=== PATIENT | male | born 1935 | race Caucasian/White ===

== ENCOUNTER 2017-01-28 05:15 | Day surgery (SDC) | payer OTHER ==
[2017-01-28] MEDS ORDERED: ceFAZolin 2 GM PREMIX 50 ML IV SCH (06:00)
[2017-01-28] MEDS ORDERED: MUPIROCIN 2% OINT 1 APPLIC/GM SYR NASAL SCH (06:00)
[2017-01-28] MEDS ORDERED: METF500T PO (06:04)
[2017-01-28] MEDS ORDERED: FURO40TA PO (06:04)
[2017-01-28] MEDS ORDERED: ASPI81CH37 CHEW (06:04)
[2017-01-28] MEDS ORDERED: BRIM0.2S4 EACH EYE (06:04)
[2017-01-28] MEDS ORDERED: WARF4TAB52 PO (06:04)
[2017-01-28] MEDS ORDERED: LIPI80TA PO (06:04)
[2017-01-28] MEDS ORDERED: GLIM2TAB PO (06:04)
[2017-01-28] MEDS ORDERED: CINN500C13 PO (06:04)
[2017-01-28] MEDS ORDERED: VITA200013 (06:04)
[2017-01-28] MEDS ORDERED: FERR325T8 PO (06:04)
[2017-01-28] MEDS ORDERED: LATA0.002 EACH EYE (06:04)
[2017-01-28] MEDS ORDERED: CART120C PO (06:04)
[2017-01-28] MEDS ORDERED: HYDR-3799 PO (06:04)
[2017-01-28] MEDS ORDERED: METO100T PO (06:04)
[2017-01-28] MEDS ORDERED: OMEG300C5 (06:04)
[2017-01-28] MEDS: POVIDONE IODINE 5% (ANTISEPSIS KIT) 4 APPLICATIONS EACH NARE SCH ×2 (06:36→08:53)
[2017-01-28] MEDS: CHLORHEXIDINE GLUCONATE 2 % 1 PACK (2 CLOTHS) TOPICAL SCH ×2 (06:37→08:53)
[2017-01-28] MEDS ORDERED: MIDAZOLAM HCL 5 MG/5 ML VIAL ONE (08:23)
--- NOTE | 2017-01-28 09:38 | MA ---
cc: ALEKS DURANT MD DATE: 01/28/[address] Durant PROCEDURE PERFORMED Loop recorder insertion. DESCRIPTION OF PROCEDURE After informed consent was obtained, the patient was prepped and draped in the usual sterile fashion. Next, a [employer] [place] LINQ loop recorder was inserted subcutaneously to the left chest. The patient tolerated the procedure without any apparent complications. Tachybrady pause and atrial fibrillation detection was enabled. The initial R-wave was 0.21 mV. The serial number was [id number]. Aleks Durant MD RAJAN/BT /8:50 AM /9:38 AM
== END 2017-01-28 09:40 | disposition home or self-care (01) ==
LOC: HDOC 05:15 → HDIC 05:16 → HDOC 09:40
PROVIDERS: ATTEND Nuclear Medicine Nuclear Cardiology
DX: I48.91 Unspecified atrial fibrillation (principal); R06.00 Dyspnea, unspecified; R53.83 Other fatigue; I25.10 Atherosclerotic heart disease of native coronary artery without angina pectoris; I11.0 Hypertensive heart disease with heart failure; I50.9 Heart failure, unspecified; E11.9 Type 2 diabetes mellitus without complications
CPT/HCPCS: 33282; C1764; J0690; J2250; J3010

== ENCOUNTER 2017-03-10 11:36 | Day surgery (SDC) | payer OTHER ==
[~2017-03-10] VITALS: Ht 177.8 cm; Wt 66.2 kg
[2017-03-10] VITALS (9 sets, daily range): BP systolic 129–160; BP diastolic 65–77; PULSE 67–86; RESP 17–18; TEMP 97.6–99.2; O2SAT 75–99
[~2017-03-10 11:36] MED LIST: ASPI81CH37 CHEW; BRIM0.2S4 EACH EYE; CART120C PO; CINN500C13 PO; FERR325T8 PO; FURO40TA PO; GLIM2TAB PO; HYDR-3799 PO; LATA0.002 EACH EYE; LIPI80TA PO; METF500T PO; METO100T PO; OMEG300C5; VITA200013; WARF4TAB52 PO
[2017-03-10 12:53] LABS: AUTOMATED NEUTROPHIL # 5.1 TH/MM3 (1.8-7.7); BASOPHIL # 0.1 TH/MM3 (0-0.2); BASOPHIL % 1.2 % (0.0-2.0); EOSINOPHIL # 0.3 TH/MM3 (0-0.4); EOSINOPHIL % 4.6 % (0.0-4.0); HEMATOCRIT 37.1 % (39.0-51.0); HEMO FLAGS DIFF FINAL; LYMPH % 11.5 % (9.0-44.0); LYMPHOCYTE # 0.8 TH/MM3 (1.0-4.8); MEAN CELL VOLUME 91.7 FL (80.0-100.0); MEAN CORPUSCULAR HEMOGLOBIN 30.6 PG (27.0-34.0); MEAN CORPUSCULAR HGB CONC 33.3 % (32.0-36.0); MONO % 7.7 % (0.0-8.0); PLATELET COUNT 241 TH/MM3 (150-450); RED BLOOD COUNT 4.05 MIL/MM3 (4.50-5.90); RED CELL DISTRIBUTION WIDTH 14.9 % (11.6-17.2); WHITE BLOOD COUNT 6.8 TH/MM3 (4.0-11.0)
[2017-03-10 13:06] LABS: APTT (PATIENT) 32.7 SEC (24.3-30.1); INTERNATIONAL NORMALIZED RATIO 1.7 RATIO; PROTHROMBIN TIME - PATIENT 19.2 SEC (9.8-11.6)
[2017-03-10] MEDS ORDERED: METO50TA PO (13:07)
[2017-03-10 13:12] LABS: BICARBONATE 27.6 MEQ/L (21.0-32.0); POTASSIUM 3.9 MEQ/L (3.5-5.1)
[2017-03-10] MEDS ORDERED: ceFAZolin 2 GM PREMIX 50 ML IV SCH (13:15)
[2017-03-10] MEDS ORDERED: VANCOMYCIN 1000 MG/NS 250 ML IV SCH ×2 (13:15)
[2017-03-10] MEDS ORDERED: CHLORHEXIDINE GLUCONATE 2 % 1 PACK (2 CLOTHS) TOPICAL SCH (13:15)
[2017-03-10] MEDS ORDERED: POVIDONE IODINE 5% (ANTISEPSIS KIT) 4 APPLICATIONS EACH NARE SCH (13:15)
[2017-03-10] MEDS ORDERED: MUPIROCIN 2% OINT 1 APPLIC/GM SYR NASAL SCH (13:15)
[2017-03-10] MEDS ORDERED: NS 1000 ML IV SCH (13:30)
[2017-03-10] MEDS ORDERED: VANCOMYCIN HCL 1000 MG VIAL ONE (13:59)
[2017-03-10] MEDS ORDERED: LIDOCAINE HCL 2% 50 ML VIAL ONE (13:59)
[2017-03-10] MEDS ORDERED: CHLORHEXIDINE GLUCONATE 2 % 1 PACK (2 CLOTHS) TOPICAL PRN (14:00)
[2017-03-10] MEDS ORDERED: LACTATED RINGER'S 1000 ML IV PRN (14:00)
[2017-03-10] MEDS ORDERED: METOPROLOL TARTRATE 25 MG TAB PO PRN (14:00)
[2017-03-10] MEDS ORDERED: INSULIN HUMAN REGULAR 1,000 UNITS/10 ML VIAL SQ PRN (14:00)
[2017-03-10] MEDS ORDERED: SODIUM CHLORID 0.9% 500 ML IV PRN (14:00)
[2017-03-10] MEDS ORDERED: POVIDONE IODINE 5% (ANTISEPSIS KIT) 4 APPLICATIONS EACH NARE PRN (14:00)
[2017-03-10] MEDS ORDERED: SODIUM CHLORID 0.9% 500 ML BAG IV ONE (14:36)
[2017-03-10] MEDS ORDERED: ONDANSETRON HCL 4 MG/2 ML VIAL IV PUSH ONE (14:36)
[2017-03-10] MEDS ORDERED: PROPOFOL 200 MG/20 ML AMP IV ONE (14:36)
[2017-03-10] MEDS ORDERED: traMADol HCL 50 MG TAB PO PRN (15:15)
[2017-03-10] MEDS ORDERED: ZOLPIDEM TARTRATE 5 MG TAB PO PRN (15:15)
--- NOTE | 2017-03-10 15:30 | CATHPROC ---
Ininal HIS Report Study Information Admission Scheduled Start Study Start Mar 10 2017 11:36AM 03/10/2017 Mar 10 2017 1:51PM [place] Service Cardiac Pacer/ICD Facility Department [facility] - Vocational Education Professional Physician and Clinical Staff Initial Boni Gentile Vegetable Tier Tracie Denson,RUSTY Recorder Fran DE LA CRUZ, Markus Castillo RT(R) Chip Espinal RCIS(BS) Procedures Performed Procedure Location (Site) Vessel Name Lead Insertion Venogram Subclav. Vein (Lft Subclavian Vein Equipment Time Retail Route Supervisor Description Size Mfg Part Number Used/Scraped 14:45 BIOTRONIK LEAD, SOLIA 60 PRO MRI * [id number] Used 14:50 BIOTRONIK PACEMAKER, ELUNA 8 SR-T * [id number] Used 14:44 [employer] PACER SAFE SHEATH, FR6, 13CM FR 6 [id number] Used Labs Hgb (g/dl) Hct (%) WBC (l/cumm) Platelets (thousands) 11.60-17.00 35.00-51.00 4.00-11.00 150.00-450.00 12.4 37.1 10.1 241 Glucose (mg/dl) BUN (mg/dl) Creatinine (mg/dl) BUN:Creatinine (1:x) 74.00-106.00 7.00-18.00 0.50-1.30 10.00-20.00 145 39 1.6 24.4 Na (meq/l) K (meq/l) 136.00-145.00 3.50-5.10 140 3.9 INR (PTT:PT) 0.90-1.10 1.7 Medication Medication Total Dose (Bolus/Oral) Medication Total Dosage/Unit 2% XYLOCAINE 15 mL Medications (Bolus/Oral) Medication Time Given Dosage/Unit Administered By Reason 2% XYLOCAINE 03/10/2017 2:37:25 PM 10 mL Boni Vicente 10 mL 2% XYLOCAINE given by Boni Vicente in Left shoulder via Subcutaneous. 2% XYLOCAINE 03/10/2017 3:05:12 PM 5 mL Markus Mcarthur 5 mL 2% XYLOCAINE given by Markus Mcarthur RT(R) via Subcutaneous. Initial Case Assessment Cardiovascular HR NIBP Chest Pain 58 143/68 0 Edema Present Skin color Skin None Normal Warm Dry Neurological State Oriented to time-place- Alert Moves all extremities person Respiration - General Respiration Rate SpO2 (%) O2 (lpm) (B/min) 17 100 6 Chronological Log Time Study Chronological Log 13:46:26 Patient arrived via Bed. 13:46:28 Patient Name, D.O.B, / Armband Verified By R.N. 13:46:29 Consent signed by the physician and the patient and verified by the Vocational Education Professional staff. 13:47:10 Patient has been NPO for More than 6Hrs. 13:47:34 Anesthesia at bedside. Assumes care of patient. 13:50:48 Table restraints applied according to hospital policy 13:51:31 Verbal Stimulation=2 Physical Stimulation=2 Airway=2 Respiration=2 TOTAL=8. (0=absent, 1=l imited, 2=present) 13:52:13 Skin Breakdown- none 14:05:22 Bovie ground pad applied to: 14:07:01 Patient Warmer Placed on the Table. 14:07:04 Disposable Defibrillator Pads Placed On Patient. 14:07:07 Geovanny Prominences Protected 14:07:12 A # 20 IV was noted in the Antecubital (left). Grade = 0 14:07:27 A # 20 IV was noted in the Antecubital (right). Grade = 0 14:07:49 History and physical on the chart or being dictated. Assessment: Initial Case, HR=58 BPM, DTEB=754/68 mmhg, Chest Pain=0, Edema=None, Color=Normal, Skin = Warm, Dry 14:07:51 Neurological: State=Alert, Ox3, ZAVALETA Respiration: Resp=17 B/min, DpU0=658 %, O2=6 lpm 14:09:08 Left Upper Chest Prepped Times Two. First Sponge And Instrument Count Done by Markus Mcarthur, RT(R). 14:21:47 Hypo's: hypo's, Sponges: sponges, Bovie/scratch: bovie/scratch Sutures: 6, Blades: 2, Instruments: 26, Syveck Patches: 0 hypos 3, raytec 20, laps 5, bovie tip 1, scratch 1 14:30:46 MD paged 14:31:49 MD responded Time Out. Correct patient, procedure, procedure equipment, site and side verified with physicia n present. Time 14:35:54 concurred by MD, individual staff and DATABASE TECHNICIAN. 14:36:03 Case Start 14:37:25 10 mL 2% XYLOCAINE given by Boni Vicente in Left shoulder via Subcutaneous. 14:39:24 The Subclav. Vein (Lft was manually injected with 20 cc's of contrast. contrast used. 14:40:16 Vascular access was obtained in the Subclav. Vein (Lft. 14:41:06 Wire inserted 14:41:11 Surgical Incision Made. 14:41:48 A pocket was created at the L Upper Chest. 14:42:20 A SAFE SHEATH, FR6, 13CM FR 6 was advanced into the Fem Vein (right) using the Percutaneous technique. 14:44:35 A LEAD, SOLIA 60 PRO MRI * was inserted and positioned in the RV. 14:45:30 The RV lead impedance and threshold being tested. 14:46:56 Peel away sheath removed 14:47:06 The RV lead was sutured to the fascia. 14:49:11 A PACEMAKER, ELUNA 8 SR-T * was connected and placed in the pocket. Second Sponge And Instrument Count Done by Markus Mcarthur RT(R). 14:54:49 Hypo's: hypo's, Sponges: sponges, Bovie/scratch: bovie/scratch Sutures: ~SUTURE~, Blades: 2, Instruments: 26, Syveck Patches: 0 hypos 3, raytec 20, laps 5, zion vie tip 1, scratch 1 15:02:59 The pocket was closed. 15:03:29 Implant Procedure was performed. 15:04:18 Steri-strips and a sterile dressing applied to site. 15:04:29 Case End 15:05:12 5 mL 2% XYLOCAINE given by Markus Mcarthur RT(R) via Subcutaneous. 15:08:43 Loop Recorder Removed. 15:10:47 No case complications noted. 15:10:56 Bedside Report will be given. 15:11:00 Implantable Device card placed in patient's chart. The Final Sponge And Instrument Count Done by Boni Vicente. 15:12:10 Hypo's: hypo's, Sponges: sponges, Bovie/scratch: bovie/scratch Sutures: 6, Blades: 2, Instruments: 26, Syveck Patches: 0 hypos 3, raytec 20, laps 5, bovie tip 1, scratch 1 15:29:26 Patient moved to stretcher 15:30:01 A sling was placed on the affected arm. End Study - Contrast Media Used In Study Contrast Total Opened (mL) Total Used (mL) Total Wasted (mL) Omnipaque 50 20 30 End Study - Maximum Contrast Load Max Contrast Load (mL) 207.5 End Study - Radiation Exposure Fluoro Time (minutes) 1.7 End Study - Patient Disposition Complications Transferred To Not selected Vocational Education Professional [facility]
[2017-03-10] MEDS: BRIMONIDINE TARTRATE 0.2% OPHT SOLN 5 ML BTL EACH EYE SCH (21:00)
[2017-03-10] MEDS ORDERED: ATORVASTATIN 80 MG TAB PO SCH (21:00)
[2017-03-10] MEDS ORDERED: LATANOPROST 0.005% OPHT SOLN 2.5 ML BTL EACH EYE SCH (21:00)
--- NOTE | 2017-03-10 21:06 | RADRPT ---
EXAM DATE/TIME: 03/10/2017 19:44 [facility] COMPARISON: No previous studies available for comparison. INDICATIONS : Post pacemeaker insertion MEDICAL HISTORY : Cardiovascular disease. SURGICAL HISTORY : CABG. ENCOUNTER: Initial ACUITY: 1 day PAIN SCORE: 0/10 LOCATION: chest FINDINGS: A single view of the chest demonstrates the lungs to be symmetrically aerated without evidence of mas s, infiltrate or effusion. The patient is status post sternotomy. The heart size is enlarged. There is a single lead pacing device in place from the left subclavian approach. No pleural effusion or pne umothorax is seen. Osseous structures are intact. CONCLUSION: Cardiomegaly Sherman Palma MD on March 10, 2017 at 21:03 Board Certified Radiologist. This report was verified electronically.
[2017-03-10] MEDS: hydrALAZINE HCL 25 MG TAB PO SCH (21:35)
[2017-03-10] MEDS: METOPROLOL TARTRATE 50 MG TAB PO SCH (21:36)
[2017-03-11] VITALS (10 sets, daily range): BP systolic 146–174; BP diastolic 72–89; PULSE 64–126; RESP 18; TEMP 97.4–98.3; O2SAT 97
[2017-03-11] MEDS ORDERED: VANCOMYCIN INJ 1,000 MG in SODIUM CHLOR 0.9% 250 ML INJ 250 ML IV SCH (03:00)
--- NOTE | 2017-03-11 08:13 | PD.CARD.PN ---
Subjective Subjective Remarks Denies pain, dyspnea. Objective Medications Item Value Date Time Aspirin 81 mg 03/11/17899 (Aspirin Chew) DAILY/CHEW Diltiazem HCl 180 mg 03/11/17899 (Cardizem Cd) DAILY/PO Furosemide 40 mg 03/11/17899 (Lasix) DAILY/PO Atorvastatin 80 mg 03/10/172099 Calcium HS/PO 03/10/172135 (Lipitor) Hydralazine HCl 25 mg 03/10/172099 (Apresoline) BID/PO 03/10/172134 Metoprolol 50 mg 03/10/172099 Tartrate BID/PO 03/10/172135 (Lopressor) Vital Signs / I&O Vital Signs Date Time Temp Pulse Resp B/P (MAP) Pulse Ox O2 Delivery O2 Flow Rate FiO2 03/11/17 06:00 68 03/11/17 05:00 70 03/11/17 04:00 68 03/11/17 03:43 98.3 64 18 146/72 (96) 97 03/11/17 03:00 66 03/11/17 02:00 78 03/11/17 01:00 64 03/11/17 00:00 72 03/10/17 23:00 69 03/10/17 23:00 97.6 72 18 129/65 (86) 99 03/10/17 22:00 74 03/10/17 21:00 72 03/10/17 20:00 70 03/10/17 19:54 98.2 75 18 153/77 (102) 95 03/10/17 19:00 68 03/10/17 18:00 68 03/10/17 17:00 86 03/10/17 12:57 99.2 67 17 160/70 (100) 98 I/O 03/10/17 03/10/17 03/10/17 03/11/17 03/11/17 03/11/17 07:00 15:00 23:00 07:00 15:00 23:00 Intake Total 650 ml 480 ml Output Total 500 ml Balance 650 ml -20 ml Intake Oral 650 ml 480 ml Output Urine Total 500 ml Physical Exam Incision sites clean, dry, intact, no hematoma or tenderness. Laboratory Laboratory Tests Test 03/10/17 12:24 White Blood Count 6.8 TH/MM3 Red Blood Count 4.05 MIL/MM3 Hemoglobin 12.4 GM/DL Hematocrit 37.1 % Mean Corpuscular Volume 91.7 FL Mean Corpuscular Hemoglobin 30.6 PG Mean Corpuscular Hemoglobin Concent 33.3 % Red Cell Distribution Width 14.9 % Platelet Count 241 TH/MM3 Mean Platelet Volume 9.3 FL Neutrophils (%) (Auto) 75.0 % Lymphocytes (%) (Auto) 11.5 % Monocytes (%) (Auto) 7.7 % Eosinophils (%) (Auto) 4.6 % Basophils (%) (Auto) 1.2 % Neutrophils # (Auto) 5.1 TH/MM3 Lymphocytes # (Auto) 0.8 TH/MM3 Monocytes # (Auto) 0.5 TH/MM3 Eosinophils # (Auto) 0.3 TH/MM3 Basophils # (Auto) 0.1 TH/MM3 CBC Comment DIFF FINAL Differential Comment Prothrombin Time 19.2 SEC Prothromb Time International Ratio 1.7 RATIO Activated Partial Thromboplast Time 32.7 SEC Blood Urea Nitrogen 39 MG/DL Creatinine 1.65 MG/DL Random Glucose 145 MG/DL Calcium Level 9.2 MG/DL Sodium Level 140 MEQ/L Potassium Level 3.9 MEQ/L Chloride Level 103 MEQ/L Carbon Dioxide Level 27.6 MEQ/L Anion Gap 9 MEQ/L Estimat Glomerular Filtration Rate 40 ML/MIN Assessment and Plan Problem List: (1) Status post placement of cardiac pacemaker ICD Codes: Z95.0 - Presence of cardiac pacemaker Status: Acute Plan: Stable overnight. Pacer re-interrogation shows good pacing parameters. Post op CXR OK, no PNTX. To discharge home today, same home medications plus Levaquin 500 mg qd for 5 days. Patient to resume Coumadin tonight. One week f /u for pacer and incision recheck. (2) Chronic atrial fibrillation ICD Codes: I48.2 - Chronic atrial fibrillation Status: Chronic Plan: Stable. No HR control issues. To resume Coumadin tonight. (3) CAD (coronary artery disease) ICD Codes: I25.10 - Atherosclerotic heart disease of [place] coronary artery without angina pectoris Status: Chronic Plan: Stable. No recent angina symptoms. Code Status full code Discussed Condition With patient Problem Qualifiers (1) CAD (coronary artery disease): Qualified Codes: I25.10 - Atherosclerotic heart disease of [place] coronary artery without angina pectoris Boni Vicente MD Mar 11, 2017 08:13
[2017-03-11] MEDS: METOPROLOL TARTRATE 50 MG TAB PO SCH (08:52)
[2017-03-11] MEDS: hydrALAZINE HCL 25 MG TAB PO SCH (08:52)
[2017-03-11] MEDS: BRIMONIDINE TARTRATE 0.2% OPHT SOLN 5 ML BTL EACH EYE SCH (08:53)
[2017-03-11] MEDS ORDERED: DILTIAZEM-CD 180 MG CAP ER PO SCH (09:00)
[2017-03-11] MEDS ORDERED: ASPIRIN 81 MG CHEW TAB CHEW SCH (09:00)
[2017-03-11] MEDS ORDERED: GLIMEPIRIDE 2 MG TAB PO SCH (09:00)
[2017-03-11] MEDS ORDERED: FUROSEMIDE 40 MG TAB PO SCH (09:00)
--- NOTE | 2017-03-12 01:21 | EKG ---
Date Performed: 03/10/2017 Time Performed: 12:57:26 PTAGE: 81 years EKG: Sinus rhythm with 1st degree A-V block Prolonged QT interval Possible inferior infarct - age undetermined QRS weston nges V3/V4 may be due to LVH but cannot rule out anterior infarct Abnormal ECG NO PREVIOUS TRACING DOCTOR: Ho Barraza Interpretating Date/Time 03/12/2017 01:20:01
--- NOTE | 2017-03-13 06:35 | MP ---
cc: CAMI POLANCO MD, GLEN DATE OF SURGERY: 03/10/2017 PROCEDURE: Single chamber permanent pacemaker implant placement via the left subclavian vein. INDICATIONS FOR PROCEDURE: Severe bradycardia, tachycardia/bradycardia syndrome. SURGEON Dr. Piotr Vicente OPERATIVE NOTE: The patient was brought to the operating suite in a fasting state after having signed informed consent. Left upper chest was prepped and draped as per policy and anesthetized with 1% lidocaine. After administration of contrast through a left arm peripheral IV, central venous access was obtained via the left subclavian vein without difficulty. A transverse incision was made inferior to the left clavicle and using blunt dissection a subcutaneous pocket was formed down to the pectoralis fascia. Over the guidewire a 6-Khmer sheath was placed and through this sheath a ventricular active fixation lead was introduced and its tip positioned in the right ventricular apex where excellent current of injury was demonstrated. Adequate sensitivity (3.0 mV) and stimulation threshold (0.8 volts) were demonstrated. The lead was secured into place using 2-0 silk ties down to the pectoralis fascia. The lead was connected to the pacemaker generator which is a Biotronik Eluna device. The lead and the generator were placed into the subcutaneous pocket which was closed using 3-0 Vicryl interrupted stitches in two layers to close the subcutaneous tissue and then 4-0 Monocryl running stitch to close the subcuticular tissue. Overlapping Steri-Strips and a dressing were applied. A pre-existing loop recorder was also removed using a small incision without difficulty. CONCLUSION Status post successful single chamber permanent pacemaker implantation via the left subclavian vein using a Biotronik Eluna pacemaker generator, status post loop recorder extraction. MD DANDY Hull/JESUS /3:09 PM /5:27 AM DANIELLE
== END 2017-03-11 10:30 | disposition home or self-care (01) ==
LOC: HDOC 11:36 → HDIC 11:37 → HCIS 16:00 → HDOC 03-11 10:30
PROVIDERS: ATTEND Internal Medicine Cardiovascular Disease
DX: I49.5 Sick sinus syndrome (principal); I48.91 Unspecified atrial fibrillation; I27.2 Other secondary pulmonary hypertension; I50.9 Heart failure, unspecified; I08.1 Rheumatic disorders of both mitral and tricuspid valves; E11.9 Type 2 diabetes mellitus without complications; Z79.82 Long term (current) use of aspirin; Z79.01 Long term (current) use of anticoagulants; Z87.891 Personal history of nicotine dependence
CPT/HCPCS: 00530; 33207; 71010; 80048; 85025; 85610; 85730; 93005; C1786; C1898; J2405; J3370; J7040; J7050

== ENCOUNTER 2017-06-15 12:35 | Observation (INO) | payer OTHER ==
[2017-06-15] VITALS (8 sets, daily range): BP systolic 120–159; BP diastolic 59–94; PULSE 71–92; RESP 15–20; TEMP 97.9–98; O2SAT 16–99
[~2017-06-15 12:35] MED LIST changes: -ASPI81CH37 CHEW; +ASPI81CH6 CHEW; -CINN500C13 PO; +CINN500C2 PO; +FERR325T18 PO; -FERR325T8 PO; -METO100T PO; +METO50TA PO; -OMEG300C5; +OMEG300C5 PO; -VITA200013; +VITA200013 PO
[2017-06-15 13:17] LABS: AUTOMATED NEUTROPHIL # 5.3 TH/MM3 (1.8-7.7); BASOPHIL # 0.1 TH/MM3 (0-0.2); BASOPHIL % 0.9 % (0.0-2.0); EOSINOPHIL # 0.3 TH/MM3 (0-0.4); EOSINOPHIL % 3.5 % (0.0-4.0); HEMOGLOBIN 10.8 GM/DL (13.0-17.0); LYMPH % 9.3 % (9.0-44.0); LYMPHOCYTE # 0.7 TH/MM3 (1.0-4.8); MEAN CELL VOLUME 92.8 FL (80.0-100.0); MEAN CORPUSCULAR HEMOGLOBIN 31.3 PG (27.0-34.0); MEAN CORPUSCULAR HGB CONC 33.8 % (32.0-36.0); MEAN PLATELET VOLUME 9.5 FL (7.0-11.0); MONO % 12.8 % (0.0-8.0); MONOCYTE # 0.9 TH/MM3 (0-0.9); NEUT % 73.5 % (16.0-70.0); PLATELET COUNT 261 TH/MM3 (150-450); RED BLOOD COUNT 3.45 MIL/MM3 (4.50-5.90); RED CELL DISTRIBUTION WIDTH 15.1 % (11.6-17.2); WHITE BLOOD COUNT 7.2 TH/MM3 (4.0-11.0)
[2017-06-15 13:24] LABS: INTERNATIONAL NORMALIZED RATIO 2.2 RATIO; PROTHROMBIN TIME - PATIENT 22.1 SEC (9.8-11.6)
[2017-06-15 13:30] LABS: BICARBONATE 27.6 MEQ/L (21.0-32.0); BLOOD UREA NITROGEN 24 MG/DL (7-18); CHLORIDE 104 MEQ/L (98-107); CREATININE 1.45 MG/DL (0.60-1.30); GLOMERULAR FILTRATION RATE 47 ML/MIN (>89); GLUCOSE,RANDOM 144 MG/DL (74-106); LIPASE 198 U/L (73-393); MAGNESIUM 1.6 MG/DL (1.5-2.5); SODIUM (NA) 140 MEQ/L (136-145)
--- NOTE | 2017-06-15 13:33 | PD ---
HPI Chief Complaint: Cardiac Complaint Time Seen by Provider: 13:16 Travel History International Travel<30 days: No Contact w/Intl Traveler<30days: No Traveled to known affect area: No History of Present Illness HPI 81-year-old male states he's been having chest pain and shortness of breath when he walks and lies flat for the past couple of days. He states that Dr. Phelan is his will call order clerk. He states Dr. Vicente placed a pacemaker at the end of February. He states that he recently held his Coumadin as his INR level was high at 3.0. He states now he is only taking 1 mg smaller dose when he usually takes 3 mg. He states they were afraid it would go up again as it was recently 3.6. He states he's not sure if he's had heart failure before but his records are here. He denies any other concurrent complaints or modifying factors. PFSH Past Medical History Hx Anticoagulant Therapy: Yes (COUMADIN) Heart Rhythm Problems: Yes Cancer: No Cardiovascular Problems: Yes (CAD, PACEMAKER, CABG) High Cholesterol: Yes Chest Pain: No Congestive Heart Failure: No Diabetes: Yes (TYPE II) Gastrointestinal Disorders: No Glaucoma: No Genitourinary: No Hepatitis: No Hiatal Hernia: No Hypertension: Yes Musculoskeletal: No Neurologic: No Reproductive: No Respiratory: Yes (COPD) Integumentary: No Thyroid Disease: No Past Surgical History Abdominal Surgery: No Cardiac Surgery: Yes (CABG 1999) Ear Surgery: No Endocrine Surgery: No Eye Surgery: No Genitourinary Surgery: No Gynecologic Surgery: No Oral Surgery: No Thoracic Surgery: No Social History Tobacco Use: No Substance Use: No Allergies-Medications (Allergen,Severity, Reaction): Coded Allergies: amiodarone (Unverified Allergy, Severe, 02/23/17) glyburide (Unverified Allergy, Severe, 02/23/17) Reported Meds & Prescriptions Reported Meds & Active Scripts Active Reported Metoprolol Tartrate 50 Mg Tab 50 Mg PO BID Brimonidine Opth Drops (Brimonidine Tartrate) 0.2% Soln 1 Drop EACH EYE BID Warfarin 1 Mg Tab 1 Mg PO DAILY Vitamin D (Cholecalciferol) 2,000 Unit Cap Metformin (Metformin HCl) 500 Mg Tab 500 Mg PO BIDPC With meals Lipitor (Atorvastatin Calcium) 80 Mg Tab 80 Mg PO HS Latanoprost Opth Drops (Latanoprost) 0.005% Drops 1 Drop EACH EYE HS Refrigerate until opened. Hydralazine HCl 25 Mg Tablet 25 Mg PO BID Glimepiride 2 Mg Tab 2 Mg PO DAILY Take with breakfast or first main meal Furosemide 40 Mg Tab 40 Mg PO DAILY Fish Oil ([place]-3 Fatty Acids) 300 Mg Capsule Ferrous Sulfate 325 Mg (65 Mg Iron) Tablet 325 Mg PO DAILY Eql Cinnamon (Cinnamon) 500 Mg Cap 1,000 Mg PO DAILY Cartia Xt (Diltiazem ER 24 HR) 120 Mg Caper 180 Mg PO DAILY Aspirin Low Dose (Aspirin) 81 Mg Chew 81 Mg CHEW DAILY Review of Systems Except as stated in HPI: all other systems reviewed are Neg Physical Exam Narrative GENERAL: Well-nourished, well-developed patient. SKIN: Warm and dry. HEAD: Normocephalic and atraumatic. EYES: No injection or drainage. ENT: No nasal drainage noted. NECK: Supple, trachea midline. CARDIOVASCULAR: Regular rate and rhythm RESPIRATORY: Breath sounds equal bilaterally at apices. No accessory muscle use. GASTROINTESTINAL: Abdomen soft, non-tender, nondistended. EXTREMITIES: No significant edema. NEUROLOGICAL: Awake and alert. Motor and sensory grossly within normal limits. Normal speech. Data Data Last Documented VS Vital Signs Date Time Temp Pulse Resp B/P (MAP) Pulse Ox O2 Delivery O2 Flow Rate FiO2 06/15/17 13:59 73 16 95 Room Air 06/15/17 13:59 133/65 (87) 124/59 (80) 06/15/17 13:59 2.00 06/15/17 12:37 97.9 Orders Orders Electrocardiogram (06/15/17 12:51) Basic Metabolic Panel (Bmp) (06/15/17 12:51) B-Type Natriuretic Peptide (06/15/17 12:51) Ckmb (Isoenzyme) Profile (06/15/17 12:51) Complete Blood Count With Diff (06/15/17 12:51) Magnesium (Mg) (06/15/17 12:51) Prothrombin Time / Inr (Pt) (06/15/17 12:51) Act Partial Throm Time (Ptt) (06/15/17 12:51) Troponin I (06/15/17 12:51) Lipase (06/15/17 12:51) Chest, Single Ap (06/15/17 12:51) Ecg Monitoring (06/15/17 13:26) Bilateral Bp Monitoring (06/15/17 13:26) Iv Access Insert/Monitor (06/15/17 13:26) Oximetry (06/15/17 13:26) Furosemide Inj (Lasix Inj) (06/15/17 15:30) Admit Order (Ed Use Only) (06/15/17 16:06) Consult Cardiology (06/15/17 ) Place In Observation (06/15/17 ) Vital Signs (Adult) Q4H (06/15/17 16:06) Activity Oob With Assistance (06/15/17 16:06) Perianesthesia Nurse / Telemetry .CONTINUOUS (06/15/17 16:06) Intake + Output LALA.QSHIFT (06/15/17 16:06) Diet Heart Healthy (06/15/17 Dinner) Sodium Chloride 0.9% Flush (Ns Flush) (06/15/17 16:15) Sodium Chloride 0.9% Flush (Ns Flush) (06/15/17 21:00) Acetaminophen (Tylenol) (06/15/17 16:15) Ondansetron Inj (Zofran Inj) (06/15/17 16:15) Temazepam (Restoril) (06/15/17 16:15) Basic Metabolic Panel (Bmp) (06/16/17 06:00) Complete Blood Count With Diff (06/16/17 06:00) Troponin I (06/15/17 16:06) Troponin I (06/15/17 22:06) Electrocardiogram (06/15/17 16:06) Electrocardiogram (06/15/17 22:06) Resp Oxygen Lazaro C Titrat 1-4 L (06/15/17 ) Pt Request For Service (06/15/17 16:06) Case Management Consult (06/15/17 16:06) Enoxaparin Inj (Lovenox Inj) (06/15/17 16:15) Scd Bilateral/Knee High LALA.BID (06/15/17 16:06) Yohan Bilateral/Knee High LALA.QSHIFT (06/15/17 16:06) Naloxone Inj (Narcan Inj) (06/15/17 16:15) Docusate Sodium-Senna (Cyndie-Colace) (06/15/17 21:00) Magnesium Hydroxide Liq (Milk Of Magnesi (06/15/17 16:15) Sennosides (Senokot) (06/15/17 16:15) Bisacodyl Supp (Dulcolax Supp) (06/15/17 16:15) Lactulose Liq (Lactulose Liq) (06/15/17 16:15) Echo 2d Comp With Doppler (06/15/17 ) Labs Laboratory Tests Test 06/15/17 13:02 White Blood Count 7.2 TH/MM3 Red Blood Count 3.45 MIL/MM3 Hemoglobin 10.8 GM/DL Hematocrit 32.0 % Mean Corpuscular Volume 92.8 FL Mean Corpuscular Hemoglobin 31.3 PG Mean Corpuscular Hemoglobin Concent 33.8 % Red Cell Distribution Width 15.1 % Platelet Count 261 TH/MM3 Mean Platelet Volume 9.5 FL Neutrophils (%) (Auto) 73.5 % Lymphocytes (%) (Auto) 9.3 % Monocytes (%) (Auto) 12.8 % Eosinophils (%) (Auto) 3.5 % Basophils (%) (Auto) 0.9 % Neutrophils # (Auto) 5.3 TH/MM3 Lymphocytes # (Auto) 0.7 TH/MM3 Monocytes # (Auto) 0.9 TH/MM3 Eosinophils # (Auto) 0.3 TH/MM3 Basophils # (Auto) 0.1 TH/MM3 CBC Comment DIFF FINAL Differential Comment Prothrombin Time 22.1 SEC Prothromb Time International Ratio 2.2 RATIO Activated Partial Thromboplast Time 34.3 SEC Blood Urea Nitrogen 24 MG/DL Creatinine 1.45 MG/DL Random Glucose 144 MG/DL Calcium Level 9.0 MG/DL Magnesium Level 1.6 MG/DL Sodium Level 140 MEQ/L Potassium Level 3.8 MEQ/L Chloride Level 104 MEQ/L Carbon Dioxide Level 27.6 MEQ/L Anion Gap 8 MEQ/L Estimat Glomerular Filtration Rate 47 ML/MIN Total Creatine Kinase 53 U/L Troponin I LESS THAN 0.02 NG/ML B-Type Natriuretic Peptide 702 PG/ML Lipase 198 U/L MDM Medical Decision Making Medical Screen Exam Complete: Yes Emergency Medical Condition: Yes Medical Record Reviewed: Yes (patient with history of tachybradycardia syndrome with recent pacemaker placement) Interpretation(s) CBC & BMP Diagram 06/15/17 13:02 Calcium Level 9.0, Magnesium Level 1.6 Last 24 hours Impressions Chest X-Ray 06/15/17 1251 Signed Impressions: Service Date/Time: Thursday, June 15, 2017 13:38 - CONCLUSION: 1. Small bilateral effusions and bibasilar airspace disease 2. Mild interstitial congestion. 3. Status post CABG. Jose Morrell MD Differential Diagnosis chf, mi, anemia, renal failure.... Narrative Course will check labs, cxr and reeval patient with therapeutic INR will hold aspirin, Lasix given for CHF, patient updated and agrees to admission Physician Communication Physician Communication dr phelan states to place in the hospital and he will follow dr read agrees to admit Diagnosis Primary Impression: CHF (congestive heart failure) Qualified Codes: I50.9 - Heart failure, unspecified Additional Impression: Chest pain Qualified Codes: R07.9 - Chest pain, unspecified Admitting Information Admitting Physician Requests: Observation Shi Busch MD Jun 15, 2017 13:33
[2017-06-15 13:34] LABS: TROPONIN I LESS THAN 0.02 NG/ML (0.02-0.05)
--- NOTE | 2017-06-15 15:15 | RADRPT ---
EXAM DATE/TIME: 06/15/2017 13:38 [facility] COMPARISON: CHEST SINGLE AP, March 10, 2017, 19:44. INDICATIONS : Chest pain. Patient complains of shortness of breath and chest pressure. MEDICAL HISTORY : Cardiovascular disease. SURGICAL HISTORY : Pacemaker. CABG. Pacer 2 mo. ago. ENCOUNTER: Initial ACUITY: 4 - 6 days PAIN SCORE: 0/10 LOCATION: Bilateral chest FINDINGS: Small bilateral effusions with bibasilar airspace disease have developed. There is mild interstitial vascular prominence. Post surgical changes from prior CABG are noted. Single lead pacemaker is noted in place. CONCLUSION: 1. Small bilateral effusions and bibasilar airspace disease 2. Mild interstitial congestion. 3. Status post CABG. Jose Morrell MD on June 15, 2017 at 15:12 Board Certified Radiologist. This report was verified electronically.
[2017-06-15] MEDS ORDERED: FUROSEMIDE 40 MG/4 ML VIAL IV PUSH ONE (15:30)
[2017-06-15] MEDS ORDERED: LACTULOSE SYRUP 20 GM/30 ML CUP PO PRN (16:15)
[2017-06-15] MEDS ORDERED: NALOXONE HCL 0.4 MG/ML AMP IV PUSH PRN (16:15)
[2017-06-15] MEDS ORDERED: BISACODYL 10 MG SUPP RECTAL PRN (16:15)
[2017-06-15] MEDS ORDERED: SODIUM CHLORIDE 0.9% FLUSH 10 ML FLUSH IV FLUSH PRN (16:15)
[2017-06-15] MEDS ORDERED: ACETAMINOPHEN 325 MG TAB PO PRN (16:15)
[2017-06-15] MEDS ORDERED: MORPHINE SULFATE 2 MG/ML INJ IM PRN (16:15)
[2017-06-15] MEDS ORDERED: MAGNESIUM HYDROXIDE SUSP 30 ML CUP PO PRN (16:15)
[2017-06-15] MEDS ORDERED: SENNOSIDES 8.6 MG TAB PO PRN (16:15)
[2017-06-15] MEDS ORDERED: ONDANSETRON HCL 4 MG/2 ML VIAL IVP PRN (16:15)
--- NOTE | 2017-06-15 17:32 | HHI.HP ---
HPI Service [facility] Hospitalists Primary Care Physician Waleska Lambert D.O. Admission Diagnosis chest pain, chf Diagnoses: Chief Complaint: Dyspnea with minimal exertion and lying flat Chest pain Travel History International Travel<30 Days: No Contact w/Intl Traveler <30 Da: No Traveled to Known Affected Are: No History of Present Illness Written by Jamee De Paz, acting as scribe for Dr. Mauro on 06/15/17 at 17: 30. 81yo male with PMHX of CAD with previous NJ and CABG, DM, HTN, COPD, HLD, CKD stage 3, MARBIN, atrial fibrillation on Coumadin and hx of tachybrady syndrome s/p pacemaker placement February of this year who presents to [facility] ED with complaints of shortness of breath with minimal exertion and bilateral lower extremity swelling for the past 4 days. He reports associated chest pain with the shortness of breath. He describes the chest pain as a nonradicular pushing sensation. He denies any associated palpitations, nausea, vomiting, abdominal pain or diarrhea. He does endorse lightheadedness with exertion. He states the chest pain is improved with lying flat. He reports increased fatigue. He denies any cough. Patient reports his blood sugars have "leonardo rocketed" over the past 4-5 days. In the ED, CXR shows mild interstitial edema and bilateral small pleural effusions and BNP elevated at 702. He reports improvement after receiving IV Lasix in the ED. He is chest pain free at this time. Review of Systems Except as stated in HPI: all other systems reviewed are Neg Past Family Social History Past Medical History HTN CAD s/p NJ and CABG CHF Type II DM CKD, stage 3 COPD HLD Atrial fibrillation on Coumadin Iron deficiency anemia Hx of tachybrady syndrome s/p pacemaker implantation Past Surgical History CABG Pacemaker implantation Appendectomy Tonsillectomy Reported Medications Metoprolol Tartrate 50 Mg Tab 50 Mg PO BID Brimonidine Opth Drops (Brimonidine Tartrate) 0.2% Soln 1 Drop EACH EYE BID Warfarin 1 Mg Tab 1 Mg PO DAILY Vitamin D (Cholecalciferol) 2,000 Unit Cap Metformin (Metformin HCl) 500 Mg Tab 500 Mg PO BIDPC With meals Lipitor (Atorvastatin Calcium) 80 Mg Tab 80 Mg PO HS Latanoprost Opth Drops (Latanoprost) 0.005% Drops 1 Drop EACH EYE HS Refrigerate until opened. Hydralazine HCl 25 Mg Tablet 25 Mg PO BID Glimepiride 2 Mg Tab 2 Mg PO DAILY Take with breakfast or first main meal Furosemide 40 Mg Tab 40 Mg PO DAILY Fish Oil ([place]-3 Fatty Acids) 300 Mg Capsule Ferrous Sulfate 325 Mg (65 Mg Iron) Tablet 325 Mg PO DAILY Eql Cinnamon (Cinnamon) 500 Mg Cap 1,000 Mg PO DAILY Cartia Xt (Diltiazem ER 24 HR) 120 Mg Caper 180 Mg PO DAILY Aspirin Low Dose (Aspirin) 81 Mg Chew 81 Mg CHEW DAILY Allergies: Coded Allergies: amiodarone (Unverified Allergy, Severe, 02/23/17) glyburide (Unverified Allergy, Severe, 02/23/17) Active Ordered Medications Current Medications Medications (Trade) Dose Ordered Sig/Kulwant Route Start Time Stop Time Status Last Admin (NS Flush) 2 ml UNSCH PRN IV FLUSH 06/15/17 16:15 (NS Flush) 2 ml BID IV FLUSH 06/15/17 21:00 (Tylenol) 650 mg Q4H PRN PO 06/15/17 16:15 (Zofran Inj) 4 mg Q6H PRN IVP 06/15/17 16:15 (Restoril) 15 mg HS PRN PO 06/15/17 16:15 (Lovenox Inj) 40 mg Q24H SQ 06/15/17 18:00 (Narcan Inj) 0.4 mg UNSCH PRN IV PUSH 06/15/17 16:15 (Cyndie-Colace) 1 tab BID PO 06/15/17 21:00 (Milk Of Magnesia Liq) 30 ml Q12H PRN PO 06/15/17 16:15 (Senokot) 17.2 mg Q12H PRN PO 06/15/17 16:15 (Dulcolax Supp) 10 mg DAILY PRN RECTAL 06/15/17 16:15 (Lactulose Liq) 30 ml DAILY PRN PO 06/15/17 16:15 (Morphine Inj) 2 mg Q4H PRN IM 06/15/17 16:15 Family History Father, CAD SHERRY Social History Patient has a remote hx of tobacco use but quit in 1966. Denies any EtOH consumption or illicit drug use. Patient lives with his . Physical Exam Vital Signs Vital Signs Date Time Temp Pulse Resp B/P (MAP) Pulse Ox O2 Delivery O2 Flow Rate FiO2 06/15/17 16:33 71 16 159/94 (115) 99 Nasal Cannula 2.00 06/15/17 13:59 73 16 95 Room Air 06/15/17 13:59 78 133/65 (87) 124/59 (80) 06/15/17 13:59 74 16 133/65 (87) 98 Room Air 2.00 124/59 (80) 06/15/17 12:37 97.9 91 15 122/78 (93) 95 Physical Exam GENERAL: This is a well-nourished, well-developed male patient who appears younger than stated age, in no apparent distress. Awake and alert. at the bedside. SKIN: No rashes, ecchymoses or lesions. Cool and dry. HEAD: Atraumatic. Normocephalic. No temporal or scalp tenderness. EYES: Pupils equal round and reactive. Extraocular motions intact. No scleral icterus. No injection or drainage. ENT: Nose without bleeding or purulent drainage. Throat without erythema, tonsillar hypertrophy or exudate. Uvula midline. Airway patent. NECK: Trachea midline. No JVD or lymphadenopathy. Supple, nontender, no meningeal signs. CARDIOVASCULAR: Regular rate and rhythm without murmurs, gallops, or rubs. RESPIRATORY: Diminished at the bases bilaterally. Clear to auscultation. Breath sounds equal bilaterally. No wheezes, rales, or rhonchi. GASTROINTESTINAL: Abdomen soft, non-tender, nondistended. No hepato-splenomegaly , or palpable masses. No guarding. MUSCULOSKELETAL: Extremities without clubbing or cyanosis. 3+ bilateral pitting edema. No joint tenderness, effusion, or edema noted. No calf tenderness. NEUROLOGICAL: Awake and alert. Able to move all extremities spontaneously. Motor and sensory function grossly intact. Normal speech. Laboratory Laboratory Tests Test 06/15/17 13:02 06/15/17 14:15 White Blood Count 7.2 Red Blood Count 3.45 Hemoglobin 10.8 Hematocrit 32.0 Mean Corpuscular Volume 92.8 Mean Corpuscular Hemoglobin 31.3 Mean Corpuscular Hemoglobin Concent 33.8 Red Cell Distribution Width 15.1 Platelet Count 261 Mean Platelet Volume 9.5 Neutrophils (%) (Auto) 73.5 Lymphocytes (%) (Auto) 9.3 Monocytes (%) (Auto) 12.8 Eosinophils (%) (Auto) 3.5 Basophils (%) (Auto) 0.9 Neutrophils # (Auto) 5.3 Lymphocytes # (Auto) 0.7 Monocytes # (Auto) 0.9 Eosinophils # (Auto) 0.3 Basophils # (Auto) 0.1 CBC Comment DIFF FINAL Differential Comment Prothrombin Time 22.1 Prothromb Time International Ratio 2.2 Activated Partial Thromboplast Time 34.3 Blood Urea Nitrogen 24 Creatinine 1.45 Random Glucose 144 Calcium Level 9.0 Magnesium Level 1.6 Sodium Level 140 Potassium Level 3.8 Chloride Level 104 Carbon Dioxide Level 27.6 Anion Gap 8 Estimat Glomerular Filtration Rate 47 Total Creatine Kinase 53 Troponin I LESS THAN 0.02 0.02 B-Type Natriuretic Peptide 702 Lipase 198 Result Diagram: 06/15/17 1302 06/15/17 1302 Imaging Last Impressions Chest X-Ray 06/15/17 1251 Signed Impressions: Service Date/Time: Thursday, June 15, 2017 13:38 - CONCLUSION: 1. Small bilateral effusions and bibasilar airspace disease 2. Mild interstitial congestion. 3. Status post CABG. MD Raissa Osuna VTE Risk Assessment Capmila VTE Risk Assessment: Mod/High Risk (score >= 2) VTE Pharm Contraindication: Coagulopathy,INR elevated Caprini Risk Assessment Model Point Value = 1 Point Value = 2 Point Value = 3 Point Value = 5 Age 41-60 Minor surgery BMI > 25 kg/m2 Swollen legs Varicose veins or History of unexplained or recurrent spontaneous Oral contraceptives or hormone replacement Sepsis (< 1 month) Serious lung disease, including pneumonia (< 1 month) Abnormal pulmonary function Acute myocardial infarction Congestive heart failure (< 1 month) History of inflammatory bowel disease Medical patient at bed rest Age 61-74 Arthroscopic surgery Major open surgery (> 45 min) Laparoscopic surgery (> 45 min) Malignancy Confined to bed (> 72 hours) Immobilizing plaster cast Central venous access Age >= 75 History of VTE Family history of VTE Factor V Leiden Prothrombin [id number] Lupus anticoagulant Anticardiolipin antibodies Elevated serum homocysteine Heparin-induced thrombocytopenia Other congenital or acquired thrombophilia Stroke (< 1 month) Elective arthroplasty Hip, pelvis, or leg fracture Acute spinal cord injury (< 1 month) Prophylaxis Regimen Total Risk Factor Score Risk Level Prophylaxis Regimen 0-1 Low Early ambulation 2 Moderate Order ONE of the following: *Sequential Compression Device (SCD) *Heparin 5000 units SQ BID 3-4 Higher Order ONE of the following medications: *Heparin 5000 units SQ TID *Enoxaparin/Lovenox 40 mg SQ daily (WT < 150 kg, CrCl > 30 mL/min) *Enoxaparin/Lovenox 30 mg SQ daily (WT < 150 kg, CrCl > 10-29 mL/min) *Enoxaparin/Lovenox 30 mg SQ BID (WT < 150 kg, CrCl > 30 mL/min) AND/OR *Sequential Compression Device (SCD) 5 or more Highest Order ONE of the following medications: *Heparin 5000 units SQ TID (Preferred with Epidurals) *Enoxaparin/Lovenox 40 mg SQ daily (WT < 150 kg, CrCl > 30 mL/min) *Enoxaparin/Lovenox 30 mg SQ daily (WT < 150 kg, CrCl > 10-29 mL/min) *Enoxaparin/Lovenox 30 mg SQ BID (WT < 150 kg, CrCl > 30 mL/min) AND *Sequential Compression Device (SCD) Assessment and Plan Assessment and Plan 81yo male with PMHX of CAD with previous NJ and CABG, DM, HTN, COPD, HLD, CKD stage 3, MARBIN, atrial fibrillation on Coumadin and hx of tachybrady syndrome s/p pacemaker placement February of this year who presents to [facility] ED with complaints of shortness of breath with minimal exertion and bilateral lower extremity swelling for the past 4 days. CHF, decompensated - CXR personally reviewed showing bilateral effusions, mild interstitial congestion - BNP 702 - Diuresis with IV Lasix. Monitor electrolytes. - Strict I&Os - obtain echocardiogram - Fluid and sodium restricted diet - continue supplemental oxygen to maintain O2 sats > 92% - PT eval/tx CAD s/p previous NJ and CABG Chest pain - c/o chest pain with dyspnea and exertion, suspect demand ischemia - patient is chest pain free after receiving IV Lasix in the ED - ED physician discussed with patients adult manager Dr. Ross who will see the patient in consultation - initial troponins negative x 2. Continue to trend Alda - ASA daily - IV Morphine prn chest pain - continuous cardiac monitoring Atrial fibrillation on Coumadin - rate controlled - INR therapeutic at 2.2 - Continue home dose of Coumadin. Monitor INR. Pharmacy to dose. - continue on home dose of Metoprolol and Diltiazem once med rec updated Hypertension - resume home dose of antihypertensives once medication reconciliation updated CKD stage III - creatinine 1.45/GFR 47, previous creatinine 1.65/GFR 40 03/10/17 - avoid nephrotoxic agents - monitor kidney function while on IV Lasix DM, type II - hold home Metformin and Glimepiride - accucheck - ISS - heart healthy diabetic diet MARBIN - resume home dose of oral iron supplementation - monitor CBC as indicated Dyslipidemia - resume home dose of Lipitor DVT prophylaxis - patient is on Coumadin This note was transcribed by ALEX Arambula . I, Dr. Elsy Mauro personally performed the history, physical exam, and medical decision making; and confirmed the accuracy of the information in the transcribed note. Authenticated by Dr. Elsy Mauro on 06/15/17 at 17:30. Discussed Condition With ED physician, patient and Jamee De Paz Jun 15, 2017 17:32 Elsy Mauro MD Jun 15, 2017 18:13
[2017-06-15] MEDS ORDERED: ENOXAPARIN SODIUM 40 MG/0.4 ML SYRINGE SQ SCH (18:00)
[2017-06-15] MEDS ORDERED: DEXTROSE 50% IN WATER 50 ML VIAL(D50) IV PUSH PRN (18:15)
[2017-06-15] MEDS ORDERED: GLUCAGON 1 MG/ML VIAL OTHER PRN (18:15)
--- NOTE | 2017-06-15 20:18 | MB ---
cc: RADHA COVARRUBIAS M.D. DATE OF CONSULTATION 06/15/2017 REASON FOR CONSULTATION Evaluation of CHF and angina. HISTORY OF THE PRESENT ILLNESS Jaguar Larson is an 81-year-old man who is a patient of my colleague Dr. Durant. The patient has known coronary artery disease. He says he was at his doctor's office and was diagnosed as having heart attack at underwent bypass surgery in year 1999 at [facility]. This was a two-vessel bypass. Note, there is no catheter bypass records available on him. He was in his usual state of health until 4 days ago when he started noticing increasing shortness of breath, lower extremity edema and the shortness of breath was worse with exertion, worse lying down and with exertion he would also get anginal type pain described as pressure in the center of his chest. He says he restricts his salt intake. He is on 40 mg of Lasix a day. He has no history of any LV dysfunction but does have a history of moderate mitral regurgitation by echocardiography in June 2016. He has had no syncope or presyncope. He also reports his blood sugars have skyrocketed in the last four days. He had a chest x-ray showing mild edema and bilateral pleural effusions. Ever since he has been in the hospital he has been receiving IV Lasix with improvement in his symptoms. PAST MEDICAL HISTORY Includes: 1. Sick sinus syndrome with intermittent a fib, status post a VVI Biotronik pacemaker. 2. Type 2 diabetes. 3. Hyperlipidemia. 4. Hypertension. 5. Moderate mitral regurgitation. 6. Previous MD. PAST SURGICAL HISTORY Includes: 1. Bypass surgery. 2. Skin cancer removals. 3. He has also had appendectomy. 4. Tonsillectomy. MEDICATIONS Are charted. ALLERGIES INCLUDE AMIODARONE, GLYBURIDE. 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 He quit smoking 1966. Denies alcohol. He is . FAMILY HISTORY Positive for heart disease in his father. PHYSICAL EXAMINATION GENERAL: Physical exam reveals a well-developed, well-nourished male in no acute distress. VITAL SIGNS: Charted. HEENT: Exam unremarkable. NECK: Shows mildly increased central venous pressure. CHEST: Shows diminished breath sounds at the bases consistent with pleural effusions. CARDIOVASCULAR: Exam shows a slight LV heave. S1-S2, regular rate and rhythm. There is least a 2/6 mitral regurgitation murmur. There is a pacemaker in the left infraclavicular region. ABDOMEN: Soft, nontender. EXTREMITIES: Reveal at least 2+ lower extremity edema. LABORATORY DATA His laboratories are charted. Troponins normal x2. Creatinine is 1.45. BNP elevated at 702. INR is 2.2. Hematocrit is 32.0. IMAGING Chest x-ray shows small bilateral effusions and mild interstitial edema. EKG shows 100% ventricular pacing, an underlying atrial rhythm cannot be discerned. IMPRESSION Decompensated congestive heart failure with a four day history. He has also had angina with his dyspnea. There is no evidence for myocardial infarction. He is 17 years post bypass. He has known moderate mitral regurgitation and has a mitral regurgitation murmur. He has responded to IV diuretics. PLAN 1. He needs a 2-D echo Doppler to assess LV function and valvular function. 2. Continue diuretics. I am increasing his potassium to ____ times a day instead of twice a day since he is on significant IV Lasix doses. Follows his electrolytes, magnesium level. After his echo is seen, we will decide on further medication adjustments. Continue his beta-nicolas. For his LV dysfunction he may be a candidate to have his pacemaker upgraded to a biventricular device. Further therapy to be determined. MD SAHIL Amado/KK /6:29 PM /7:57 PM
[2017-06-15] MEDS: SODIUM CHLORIDE 0.9% FLUSH 10 ML FLUSH IV FLUSH SCH (21:00)
[2017-06-15] MEDS: DOCUSATE SODIUM 50 MG/SENNA 8.6 MG TAB PO SCH (21:00)
[2017-06-15] MEDS: INSULIN ASPART SUPPLEMENTAL SCALE SQ SCH (21:00)
[2017-06-15] MEDS ORDERED: POTASSIUM CHLORIDE 20 MEQ CONTROLLED RELEASE TAB PO SCH (21:00)
[2017-06-15] MEDS: LATANOPROST 0.005% OPHT SOLN 2.5 ML BTL EACH EYE SCH (21:00)
[2017-06-15] MEDS: ATORVASTATIN 40 MG TAB PO SCH (21:42)
[2017-06-15] MEDS: METOPROLOL TARTRATE 50 MG TAB PO SCH (21:42)
[2017-06-15] MEDS: POTASSIUM CHLORIDE 20 MEQ CONTROLLED RELEASE TAB PO SCH (21:42)
[2017-06-15 22:17] LABS: AST (GOT) 20 U/L (15-37); BICARBONATE 28.8 MEQ/L (21.0-32.0); BLOOD UREA NITROGEN 22 MG/DL (7-18); CALCIUM 8.5 MG/DL (8.5-10.1); CHLORIDE 104 MEQ/L (98-107); CREATININE 1.28 MG/DL (0.60-1.30); GLOMERULAR FILTRATION RATE 54 ML/MIN (>89); GLUCOSE,RANDOM 109 MG/DL (74-106); MAGNESIUM 1.5 MG/DL (1.5-2.5); SODIUM (NA) 140 MEQ/L (136-145)
[2017-06-15 22:18] LABS: ALT (GPT) 30 U/L (12-78)
[2017-06-15 22:22] LABS: ALKALINE PHOSPHATASE 112 U/L (45-117); TOTAL BILIRUBIN ADULT 1.5 MG/DL (0.2-1.0); TOTAL PROTEIN 6.4 GM/DL (6.4-8.2); TROPONIN I 0.02 NG/ML (0.02-0.05)
[2017-06-16] VITALS (27 sets, daily range): BP systolic 123–156; BP diastolic 59–82; PULSE 61–137; RESP 16–20; TEMP 97.2–98.3; O2SAT 90–97
[2017-06-16 05:48] LABS: AUTOMATED NEUTROPHIL # 4.4 TH/MM3 (1.8-7.7); BASOPHIL # 0.1 TH/MM3 (0-0.2); BASOPHIL % 1.2 % (0.0-2.0); EOSINOPHIL # 0.4 TH/MM3 (0-0.4); EOSINOPHIL % 6.3 % (0.0-4.0); HEMATOCRIT 29.6 % (39.0-51.0); HEMOGLOBIN 10.2 GM/DL (13.0-17.0); LYMPH % 11.1 % (9.0-44.0); LYMPHOCYTE # 0.7 TH/MM3 (1.0-4.8); MEAN CELL VOLUME 91.8 FL (80.0-100.0); MEAN CORPUSCULAR HEMOGLOBIN 31.6 PG (27.0-34.0); MEAN CORPUSCULAR HGB CONC 34.4 % (32.0-36.0); MEAN PLATELET VOLUME 9.3 FL (7.0-11.0); MONO % 13.2 % (0.0-8.0); MONOCYTE # 0.9 TH/MM3 (0-0.9); NEUT % 68.2 % (16.0-70.0); PLATELET COUNT 224 TH/MM3 (150-450); RED BLOOD COUNT 3.23 MIL/MM3 (4.50-5.90); RED CELL DISTRIBUTION WIDTH 14.9 % (11.6-17.2); WHITE BLOOD COUNT 6.4 TH/MM3 (4.0-11.0)
[2017-06-16 05:57] LABS: PROTHROMBIN TIME - PATIENT 20.7 SEC (9.8-11.6)
[2017-06-16] MEDS: INSULIN ASPART SUPPLEMENTAL SCALE SQ SCH ×4 (08:00→21:18)
[2017-06-16] MEDS: METOPROLOL TARTRATE 50 MG TAB PO SCH ×2 (08:44→21:17)
[2017-06-16] MEDS: FUROSEMIDE 40 MG/4 ML VIAL IV PUSH SCH ×2 (08:44→16:55)
[2017-06-16] MEDS: POTASSIUM CHLORIDE 20 MEQ CONTROLLED RELEASE TAB PO SCH ×3 (08:44→16:55)
[2017-06-16] MEDS: SODIUM CHLORIDE 0.9% FLUSH 10 ML FLUSH IV FLUSH SCH ×2 (08:45→21:18)
[2017-06-16] MEDS: DOCUSATE SODIUM 50 MG/SENNA 8.6 MG TAB PO SCH ×2 (08:45→21:17)
--- NOTE | 2017-06-16 09:40 | HHI.PR ---
Subjective Remarks The patient was seen vp clinical research. Had breakfast. Says she feels improved. LE edema improved, less sob. Able to ambulate without any problems. Denies chest pain or palpitations. No fever or chills.No cough, no n/v/d/c. Objective Vitals Vital Signs Date Time Temp Pulse Resp B/P (MAP) Pulse Ox O2 Delivery O2 Flow Rate FiO2 06/16/17 09:00 85 06/16/17 08:50 94 21 06/16/17 08:00 90 06/16/17 07:15 98.3 86 18 133/70 (91) 94 06/16/17 07:15 94 06/16/17 06:11 75 06/16/17 05:09 70 06/16/17 04:25 61 06/16/17 03:33 74 06/16/17 03:15 98.0 68 17 123/59 (80) 94 06/16/17 02:21 68 06/16/17 01:10 68 06/16/17 00:13 75 06/15/17 23:26 97.9 74 18 120/60 (80) 93 06/15/17 23:26 77 06/15/17 22:00 76 06/15/17 21:20 98.0 92 16 145/67 (93) 93 06/15/17 21:20 75 06/15/17 19:14 72 20 133/66 (88) 96 1.00 06/15/17 17:56 70 16 148/90 (109) 99 Nasal Cannula 2.00 06/15/17 16:33 71 16 159/94 (115) 99 Nasal Cannula 2.00 06/15/17 13:59 73 16 95 Room Air 06/15/17 13:59 78 133/65 (87) 124/59 (80) 06/15/17 13:59 74 16 133/65 (87) 98 Room Air 2.00 124/59 (80) 06/15/17 12:37 97.9 91 15 122/78 (93) 95 I/O 06/15/17 06/15/17 06/15/17 06/16/17 06/16/17 06/16/17 07:00 15:00 23:00 07:00 15:00 23:00 Intake Total 240 ml Output Total 525 ml Balance -285 ml Intake Oral 240 ml Output Urine Total 525 ml Result Diagram: 06/16/17 0522 06/15/17 2146 Imaging Last Impressions Chest X-Ray 06/15/17 1251 Signed Impressions: Service Date/Time: Thursday, June 15, 2017 13:38 - CONCLUSION: 1. Small bilateral effusions and bibasilar airspace disease 2. Mild interstitial congestion. 3. Status post CABG. Jose Morrell MD Objective Remarks GENERAL: This is a well-nourished, well-developed male patient who appears younger than stated age, in no apparent distress. Awake and alert. at the bedside. CARDIOVASCULAR: Regular rate and rhythm without murmurs, gallops, or rubs. RESPIRATORY: Diminished at the bases bilaterally. Clear to auscultation. Breath sounds equal bilaterally. No wheezes, rales, or rhonchi. GASTROINTESTINAL: Abdomen soft, non-tender, nondistended. No hepato-splenomegaly , or palpable masses. No guarding. MUSCULOSKELETAL: Extremities without clubbing or cyanosis. 1+ bilateral pitting edema improved. No joint tenderness, effusion, or edema noted. No calf tenderness. NEUROLOGICAL: Awake and alert. Able to move all extremities spontaneously. Motor and sensory function grossly intact. Normal speech. A/P Assessment and Plan 81yo male with PMHX of CAD with previous [place] and CABG, DM, HTN, COPD, HLD, CKD stage 3, MARBIN, atrial fibrillation on Coumadin and hx of tachybrady syndrome s/p pacemaker placement February of this year who presents to [facility] ED with complaints of shortness of breath with minimal exertion and bilateral lower extremity swelling for the past 4 days. CHF, decompensated - CXR personally reviewed showing bilateral effusions, mild interstitial congestion - BNP 702, monitor - Diuresis with IV Lasix. Monitor electrolytes. - Strict I&Os - obtain echocardiogram - Fluid and sodium restricted diet -Continue lasix 40 mg IV bid , monitor kidney function closely - continue supplemental oxygen to maintain O2 sats > 92% - PT eval/tx -Consult his cardiology Dr PADILLA s/p previous LA and CABG Chest pain - c/o chest pain with dyspnea and exertion, suspect demand ischemia - patient is chest pain free after receiving IV Lasix in the ED - ED physician discussed with patients repair servicer Dr. Ross who will see the patient in consultation - initial troponins negative x 2. Continue to trend Alda - ASA daily - IV Morphine prn chest pain - continuous cardiac monitoring Atrial fibrillation on Coumadin - rate controlled - INR therapeutic at 2.2 - Continue home dose of Coumadin. Monitor INR. Pharmacy to dose. - continue on home dose of Metoprolol and Diltiazem once med rec updated Hypertension - resume home dose of antihypertensives once medication reconciliation updated CKD stage III - creatinine 1.45/GFR 47, previous creatinine 1.65/GFR 40 03/10/17 - avoid nephrotoxic agents - monitor kidney function while on IV Lasix DM, type II - hold home Metformin and Glimepiride - accucheck - ISS - heart healthy diabetic diet MARBIN - resume home dose of oral iron supplementation - monitor CBC as indicated Dyslipidemia - resume home dose of Lipitor DVT prophylaxis - patient is on Coumadin Discussed with the patient and nurse Elsy Mauro MD Jun 16, 2017 09:40
[2017-06-16] MEDS ORDERED: POTASSIUM CHLORIDE 20 MEQ CONTROLLED RELEASE TAB PO ONE (10:00)
[2017-06-16] MEDS: MAGNESIUM SULFATE 1 GM PREMIX 100 ML IV SCH ×2 (11:00→11:37)
[2017-06-16] MEDS: LISINOPRIL 5 MG TAB PO SCH ×2 (11:54→21:17)
--- NOTE | 2017-06-16 15:19 | PD.CARD.PN ---
Subjective Subjective Remarks Much less SOB Objective Medications Current Medications Medications (Trade) Dose Ordered Sig/Kulwant Route Start Time Stop Time Status Last Admin (NS Flush) 2 ml UNSCH PRN IV FLUSH 06/15/17 16:15 (NS Flush) 2 ml BID IV FLUSH 06/15/17 21:00 06/16/17 08:45 (Tylenol) 650 mg Q4H PRN PO 06/15/17 16:15 (Zofran Inj) 4 mg Q6H PRN IVP 06/15/17 16:15 (Restoril) 15 mg HS PRN PO 06/15/17 16:15 (Narcan Inj) 0.4 mg UNSCH PRN IV PUSH 06/15/17 16:15 (Cyndie-Colace) 1 tab BID PO 06/15/17 21:00 (Milk Of Magnesia Liq) 30 ml Q12H PRN PO 06/15/17 16:15 (Senokot) 17.2 mg Q12H PRN PO 06/15/17 16:15 (Dulcolax Supp) 10 mg DAILY PRN RECTAL 06/15/17 16:15 (Lactulose Liq) 30 ml DAILY PRN PO 06/15/17 16:15 (Morphine Inj) 2 mg Q4H PRN IM 06/15/17 16:15 (D50w (Vial) Inj) 50 ml UNSCH PRN IV PUSH 06/15/17 18:15 (Glucagon Inj) 1 mg UNSCH PRN OTHER 06/15/17 18:15 (NovoLOG SUPPLEMENTAL SCALE) 1 ACHS SLIDING SCALE SQ 06/15/17 21:00 06/16/17 11:37 Pharmacy Profile Note 0 ml @ 0 mls/hr UNSCH OTHER 06/15/17 18:15 (Coumadin) 2.5 mg DAILY@16 PO 06/16/17 16:00 (Lasix Inj) 40 mg BID@09,18 IV PUSH 06/16/17 09:00 06/16/17 08:44 (Xalatan 0.005% Opth Soln) 1 drop HS EACH EYE 06/15/17 21:00 (Lipitor) 40 mg HS PO 06/15/17 21:00 06/15/17 21:42 (Lopressor) 50 mg Q12HR PO 06/15/17 21:00 06/16/17 08:44 (Coumadin) 1 mg ONCE@1600 ONCE PO 06/16/17 16:00 06/16/17 16:01 (KCl) 40 meq TID PO 06/16/17 13:00 06/16/17 13:09 (Prinivil) 5 mg Q12HR PO 06/16/17 10:15 06/16/17 11:54 Vital Signs / I&O Vital Signs Date Time Temp Pulse Resp B/P (MAP) Pulse Ox O2 Delivery O2 Flow Rate FiO2 06/16/17 15:00 82 06/16/17 15:00 98.0 88 16 156/70 (98) 97 06/16/17 14:00 86 06/16/17 13:00 78 06/16/17 12:00 85 06/16/17 11:00 97.9 71 16 140/67 (91) 95 06/16/17 11:00 78 06/16/17 10:00 90 06/16/17 09:00 85 06/16/17 08:50 94 21 06/16/17 08:00 90 06/16/17 07:15 98.3 86 18 133/70 (91) 94 06/16/17 07:15 94 06/16/17 06:11 75 06/16/17 05:09 70 06/16/17 04:25 61 06/16/17 03:33 74 06/16/17 03:15 98.0 68 17 123/59 (80) 94 06/16/17 02:21 68 06/16/17 01:10 68 06/16/17 00:13 75 06/15/17 23:26 97.9 74 18 120/60 (80) 93 06/15/17 23:26 77 06/15/17 22:00 76 06/15/17 21:20 98.0 92 16 145/67 (93) 93 06/15/17 21:20 75 06/15/17 19:14 72 20 133/66 (88) 96 1.00 06/15/17 17:56 70 16 148/90 (109) 99 Nasal Cannula 2.00 06/15/17 16:33 71 16 159/94 (115) 99 Nasal Cannula 2.00 I/O 06/15/17 06/15/17 06/15/17 06/16/17 06/16/1717 06:59 14:59 22:59 06:59 14:59 22:59 Intake Total 240 ml 200 ml Output Total 525 ml Balance -285 ml 200 ml Intake Oral 240 ml IV Total 200 ml Output Urine Total 525 ml Physical Exam Alert JVD gone Chest: BS diminished at bases CV S1S2 RRR with 2/6 MR murmur Abd; no hepatomegaly Ext. Edema improved trace to 1+ Laboratory Laboratory Tests Test 06/15/17 21:46 06/16/17 05:20 06/16/17 05:22 Blood Urea Nitrogen 22 MG/DL Creatinine 1.28 MG/DL Random Glucose 109 MG/DL Total Protein 6.4 GM/DL Albumin 3.0 GM/DL Calcium Level 8.5 MG/DL Magnesium Level 1.5 MG/DL Alkaline Phosphatase 112 U/L Aspartate Amino Transf (AST/SGOT) 20 U/L Alanine Aminotransferase (ALT/SGPT) 30 U/L Total Bilirubin 1.5 MG/DL Sodium Level 140 MEQ/L Potassium Level 3.1 MEQ/L Chloride Level 104 MEQ/L Carbon Dioxide Level 28.8 MEQ/L Anion Gap 7 MEQ/L Estimat Glomerular Filtration Rate 54 ML/MIN Troponin I 0.02 NG/ML Prothrombin Time 20.7 SEC Prothromb Time International Ratio 2.0 RATIO White Blood Count 6.4 TH/MM3 Red Blood Count 3.23 MIL/MM3 Hemoglobin 10.2 GM/DL Hematocrit 29.6 % Mean Corpuscular Volume 91.8 FL Mean Corpuscular Hemoglobin 31.6 PG Mean Corpuscular Hemoglobin Concent 34.4 % Red Cell Distribution Width 14.9 % Platelet Count 224 TH/MM3 Mean Platelet Volume 9.3 FL Neutrophils (%) (Auto) 68.2 % Lymphocytes (%) (Auto) 11.1 % Monocytes (%) (Auto) 13.2 % Eosinophils (%) (Auto) 6.3 % Basophils (%) (Auto) 1.2 % Neutrophils # (Auto) 4.4 TH/MM3 Lymphocytes # (Auto) 0.7 TH/MM3 Monocytes # (Auto) 0.9 TH/MM3 Eosinophils # (Auto) 0.4 TH/MM3 Basophils # (Auto) 0.1 TH/MM3 CBC Comment DIFF FINAL Differential Comment Imaging Last 48 hours Impressions Chest X-Ray 06/15/17 1251 Signed Impressions: Service Date/Time: Thursday, June 15, 2017 13:38 - CONCLUSION: 1. Small bilateral effusions and bibasilar airspace disease 2. Mild interstitial congestion. 3. Status post CABG. Jose Morrell MD Assessment and Plan Problem List: (1) CHF (congestive heart failure) ICD Codes: I50.9 - Heart failure, unspecified Status: Acute Plan: Markedly better (2) Chronic atrial fibrillation ICD Codes: I48.2 - Chronic atrial fibrillation Status: Chronic (3) CAD (coronary artery disease) ICD Codes: I25.10 - Atherosclerotic heart disease of [place] coronary artery without angina pectoris Status: Chronic Plan: No evidence of NH (4) Mitral regurgitation ICD Codes: I34.0 - Nonrheumatic mitral (valve) insufficiency Plan: await echo, add ACEI Problem Qualifiers (1) CHF (congestive heart failure): Qualified Codes: I50.9 - Heart failure, unspecified Tacho Cornejo MD Jun 16, 2017 15:19
[2017-06-16] MEDS ORDERED: WARFARIN SOD 1 MG TAB PO ONE (16:00)
--- NOTE | 2017-06-16 16:21 | ECHRPT ---
Indication: CHEST PAIN CONCLUSIONS Normal left ventricular size. Mild concentric left ventricular hypertrophy. The left ventricular systolic function is normal with an estimated ejection fraction in the range of 55-60%. Distinct regional wall motion abnormalities. A pacemaker wire is noted. The right ventricle is moderately dilated. The right ventricular systoilc function is mildly decreased. The left atrial size is moderately dilated. The right atrial size is vlta-qr-deuiiihgry dilated. There is a pacemaker wire present in the right atrial cavity. Opmg-df-nvtlbqjz mitral valve regurgitation. Aortic valve sclerosis is present. There is moderate to severe tricuspid valve regurgitation. BP: 123 / 59 HR: 75 Rhythm: Sinus MEASUREMENTS (Male / Female) Normal Values Technical Quality:Fair 2D ECHO LV Diastolic Diameter PLAX 4.7 cm 4.2 - 5.9 / 3.9 - 5.3 cm LV Systolic Diameter PLAX 3.6 cm IVS Diastolic Thickness 1.1 cm 0.6 - 1.0 / 0.6 - 0.9 cm LVPW Diastolic Thickness 1.1 cm 0.6 - 1.0 / 0.6 - 0.9 cm LV Relative Wall Thickness 0.5 RV Internal Dim ED PLAX 3.6 cm LVOT Diameter 2.1 cm Aortic Root Diameter 2.9 cm LA Systolic Diameter LX 4.5 cm 3.0 - 4.0 / 2.7 - 3.8 cm M-MODE AV Cusp Separation MM 1.5 cm DOPPLER AV Peak Velocity 197.3 cm/s AV Peak Gradient 15.6 mmHg AV Mean Gradient 8.3 mmHg AV Velocity Time Integral 37.3 cm LVOT Peak Velocity 73.3 cm/s LVOT Peak Gradient 2.1 mmHg LVOT Velocity Time Integral 14.6 cm AV Area Cont Eq vti 1.4 cm AV Area Cont Eq pk 1.3 cm Mitral E Point Velocity 78.4 cm/s LV E' Lateral Velocity 9.9 cm/s Mitral E to LV E' Lateral Ratio 7.9 LV E' Septal Velocity 9.4 cm/s Mitral E to LV E' Septal Ratio 8.4 TR Peak Velocity 312.0 cm/s TR Peak Gradient 38.9 mmHg Right Atrial Pressure 10.0 mmHg Pulmonary Artery Systolic Pressu 48.9 mmHg Right Ventricular Systolic Press 48.9 mmHg PV Peak Velocity 36.1 cm/s PV Peak Gradient 0.5 mmHg FINDINGS LEFT VENTRICLE Normal left ventricular size. Mild concentric left ventricular hypertrophy. The left ventricular systolic function is normal with an estimated ejection fraction in the range of 55-60%. Distinct regional wall motion abnormalities. RIGHT VENTRICLE A pacemaker wire is noted. The right ventricle is moderately dilated. The right ventricular systoilc function is mildly decreased. LEFT ATRIUM The left atrial size is moderately dilated. RIGHT ATRIUM The right atrial size is dskj-uv-fggmbzqriv dilated. There is a pacemaker wire present in the right atrial cavity. MITRAL VALVE Nyix-ez-tlgfginf mitral valve regurgitation. AORTIC VALVE Aortic valve sclerosis is present. TRICUSPID VALVE There is moderate to severe tricuspid valve regurgitation. Calderon Mohamud MD (Electronically Signed) Final Date:16 June 2017 16:21
--- NOTE | 2017-06-16 16:33 | EKG ---
Date Performed: 06/15/2017 Time Performed: 12:59:44 PTAGE: 81 years EKG: ELECTRONIC VENTRICULAR PACEMAKER ABNORMAL RHYTHM ECG Since PREVIOUS TRACING , no significant change noted PREVIOUS TRACIN03/10/2017 12.57 DOCTOR: Paco Dsouza Interpretating Date/Time 06/16/2017 16:31:59
--- NOTE | 2017-06-16 16:34 | EKG ---
Date Performed: 06/15/2017 Time Performed: 23:11:20 PTAGE: 81 years EKG: Ventricular pacing. Pacemaker rhythm - no further analysis Abnormal ECG Since PREVIOUS TRACING , no significant change noted PREVIOUS TRACIN06/15/2017 19.46 DOCTOR: Paco Dsouza Interpretating Date/Time 06/16/2017 16:33:10
--- NOTE | 2017-06-16 16:34 | EKG ---
Date Performed: 06/15/2017 Time Performed: 19:46:18 PTAGE: 81 years EKG: UNCERTAIN IRREGULAR RHYTHM ELECTRONIC VENTRICULAR PACEMAKER -- CONTOUR ANALYSIS BASED ON IN TRINSIC RHYTHM ST DEVIATION AND MODERATE T-WAVE ABNORMALITY, CONSIDER LATERAL ISCHEMIA ST DEVIATION A ND MODERATE T-WAVE ABNORMALITY, CONSIDER INFERIOR ISCHEMIA ABNORMAL ECG Since PREVIOUS TRACING , no significant change noted PREVIOUS TRACIN06/15/2017 12.59.44 DOCTOR: Paco Dsouza Interpretating Date/Time 06/16/2017 16:32:42
[2017-06-16] MEDS: WARFARIN SOD 2.5 MG TAB PO SCH (16:55)
[2017-06-16] MEDS: ATORVASTATIN 40 MG TAB PO SCH (21:17)
[2017-06-16] MEDS: TEMAZEPAM 15 MG CAP PO PRN (21:17)
[2017-06-16] MEDS: LATANOPROST 0.005% OPHT SOLN 2.5 ML BTL EACH EYE SCH (21:18)
[2017-06-17] VITALS (27 sets, daily range): BP systolic 126–151; BP diastolic 58–95; PULSE 69–134; RESP 16–17; TEMP 97.4–98.6; O2SAT 94–100
[2017-06-17] MEDS ORDERED: DILTIAZEM HCL 25 MG/5 ML VIAL IV PRN (00:15)
[2017-06-17 06:14] LABS: INTERNATIONAL NORMALIZED RATIO 1.7 RATIO; PROTHROMBIN TIME - PATIENT 17.4 SEC (9.8-11.6)
[2017-06-17 06:29] LABS: BICARBONATE 30.5 MEQ/L (21.0-32.0); CALCIUM 8.9 MG/DL (8.5-10.1); CREATININE 1.48 MG/DL (0.60-1.30); MAGNESIUM 2.2 MG/DL (1.5-2.5)
[2017-06-17] MEDS ORDERED: METO1TAB43 PO (07:17)
[2017-06-17] MEDS ORDERED: GLIM2TAB PO (07:35)
[2017-06-17] MEDS: INSULIN ASPART SUPPLEMENTAL SCALE SQ SCH ×4 (08:00→20:37)
[2017-06-17] MEDS: DOCUSATE SODIUM 50 MG/SENNA 8.6 MG TAB PO SCH ×2 (08:13→20:31)
[2017-06-17] MEDS: METOPROLOL TARTRATE 50 MG TAB PO SCH ×2 (08:13→20:31)
[2017-06-17] MEDS: SODIUM CHLORIDE 0.9% FLUSH 10 ML FLUSH IV FLUSH SCH ×2 (08:13→20:31)
[2017-06-17] MEDS: LISINOPRIL 5 MG TAB PO SCH ×2 (08:13→20:31)
[2017-06-17] MEDS ORDERED: ATROPINE SULFATE 1 MG/10 ML SYRINGE ONE (08:30)
[2017-06-17] MEDS ORDERED: EPINEPHrine HCL (1:1000) 1 MG/ML VIAL ONE (08:30)
[2017-06-17] MEDS ORDERED: DILTIAZEM-CD 180 MG CAP ER PO SCH (09:00)
--- NOTE | 2017-06-17 09:06 | RADRPT ---
EXAM DATE/TIME: 06/17/2017 08:40 [facility] COMPARISON: CHEST SINGLE AP, June 15, 2017, 13:38. INDICATIONS : Short of breath. MEDICAL HISTORY : Cardiovascular disease. Congestive heart failure. SURGICAL HISTORY : CABG. Pacemaker. ENCOUNTER: Subsequent ACUITY: 2 days PAIN SCORE: 0/10 LOCATION: Bilateral chest FINDINGS: Frontal and lateral views of the chest demonstrate a normal-sized cardiac silhouette with calcificati on of the aorta in this patient post median sternotomy and CABG. Left chest wall cardiac pacing devic e is present. EKG leads overlie the patient. There is blunting of the costophrenic sulci bilaterally on the lateral projection. No airspace consolidation or pneumothorax is identified. The bones and sof t tissues demonstrate no acute finding. CONCLUSION: Small bilateral pleural effusions, slightly decreased in size from the prior examination. No other ac shaina finding is identified. Sherman Lopez MD on June 17, 2017 at 9:03 Board Certified Radiologist. This report was verified electronically.
[2017-06-17] MEDS ORDERED: LISI-519 PO (09:50)
--- NOTE | 2017-06-17 09:51 | HHI.PR ---
Subjective Remarks Patient ambulating in the room. Says she feels less sob. Lucama palpitations earlier today. No chest pain. No n/v/d/c. LE edema improved. Awaiting for evaluation by EP doctor Bryce, patient is telling me he agrees with the procedure. Patient is with A. fib with RVR overnight, increase Cardizem. Patient however with a failed medical management and Dr. Duarte is consulted for further evaluation possible upgrading her pacemaker to biventricular device. Objective Vitals Vital Signs Date Time Temp Pulse Resp B/P (MAP) Pulse Ox O2 Delivery O2 Flow Rate FiO2 06/17/17 07:35 94 Nasal Cannula 06/17/17 07:00 121 06/17/17 07:00 98.1 122 16 137/95 (109) 95 06/17/17 06:00 113 06/17/17 05:00 88 06/17/17 04:30 134 06/17/17 04:00 94 06/17/17 03:10 97.4 97 16 140/68 (92) 100 151/67 (95) 150/74 (99) 06/17/17 03:00 77 06/17/17 02:00 94 06/17/17 01:00 80 06/17/17 00:00 76 06/16/17 23:05 137 06/16/17 23:00 97.8 89 16 138/63 (88) 95 06/16/17 23:00 96 06/16/17 22:00 88 06/16/17 21:00 86 06/16/17 20:00 97.2 90 20 134/82 (99) 96 06/16/17 20:00 82 06/16/17 19:00 72 06/16/17 18:00 78 06/16/17 17:00 82 06/16/17 16:05 85 06/16/17 15:00 82 06/16/17 15:00 98.0 88 16 156/70 (98) 97 06/16/17 14:00 86 06/16/17 13:00 78 06/16/17 12:00 85 06/16/17 11:00 97.9 71 16 140/67 (91) 95 06/16/17 11:00 78 06/16/17 10:00 90 I/O 12/7/17 12/01/2406/16/17 06/17/17 06/17/17 06/17/17 07:00 15:00 23:00 07:00 15:00 23:00 Intake Total 240 ml 200 ml 240 ml 480 ml Output Total 525 ml 1210 ml 1250 ml Balance -285 ml 200 ml -970 ml -770 ml Intake Oral 240 ml 240 ml 480 ml IV Total 200 ml Output Urine Total 525 ml 1210 ml 1250 ml # Bowel Movements 0 0 Result Diagram: 06/16/17 0506/17/17 0547 Imaging Last Impressions Chest X-Ray 06/17/17599 Signed Impressions: Service Date/Time: Saturday, June 17, 2017 08:40 - CONCLUSION: Small bilateral pleural effusions, slightly decreased in size from the prior examination. No other acute finding is identified. Sherman Lopez MD Objective Remarks GENERAL: This is a well-nourished, well-developed male patient who appears younger than stated age, in no apparent distress. Awake and alert. at the bedside. CARDIOVASCULAR: Regular rate and rhythm without murmurs, gallops, or rubs. RESPIRATORY: Diminished at the bases bilaterally. Clear to auscultation. Breath sounds equal bilaterally. No wheezes, rales, or rhonchi. GASTROINTESTINAL: Abdomen soft, non-tender, nondistended. No hepato-splenomegaly , or palpable masses. No guarding. MUSCULOSKELETAL: Extremities without clubbing or cyanosis. 1+ bilateral pitting edema improved. No joint tenderness, effusion, or edema noted. No calf tenderness. NEUROLOGICAL: Awake and alert. Able to move all extremities spontaneously. Motor and sensory function grossly intact. Normal speech. A/P Assessment and Plan 81yo male with PMHX of CAD with previous VA and CABG, DM, HTN, COPD, HLD, CKD stage 3, MARBIN, atrial fibrillation on Coumadin and hx of tachybrady syndrome s/p pacemaker placement February of this year who presents to [facility] ED with complaints of shortness of breath with minimal exertion and bilateral lower extremity swelling for the past 4 days. CHF, decompensated - CXR personally reviewed showing bilateral effusions, mild interstitial congestion - BNP 702, monitor - Diuresis with IV Lasix. Monitor electrolytes. - Strict I&Os - Obtain echocardiogram - Fluid and sodium restricted diet -Continue lasix 40 mg IV bid , monitor kidney function closely - continue supplemental oxygen to maintain O2 sats > 92% - PT eval/tx -Consult his cardiology doctor. ff. - With Afib with RVR overnight 06/17. increased cardizem to 360 mg po daily. Patient with persistent Afib failed medical management, consult EP Dr Wu for evaluation patient might benefit for biventricular device. CAD s/p previous VA and CABG Chest pain - c/o chest pain with dyspnea and exertion, suspect demand ischemia - patient is chest pain free after receiving IV Lasix in the ED - ED physician discussed with patients indigo mixer Dr. Ross who will see the patient in consultation - initial troponins negative x 2. Continue to trend Alda - ASA daily - IV Morphine prn chest pain - continuous cardiac monitoring Atrial fibrillation on Coumadin - rate controlled - INR therapeutic at 2.2 on admission - Continue home dose of Coumadin. Monitor INR. Pharmacy to dose. - continue on home dose of Metoprolol and Diltiazem once med rec updated Hypertension - resume home dose of antihypertensives once medication reconciliation updated CKD stage III - creatinine 1.45/GFR 47, on admission, previous creatinine 1.65/GFR 40 03/10 - avoid nephrotoxic agents - monitor kidney function while on IV Lasix DM, type II - hold home Metformin and Glimepiride - accucheck - ISS - heart healthy diabetic diet MARBIN - resume home dose of oral iron supplementation - monitor CBC as indicated Dyslipidemia - resume home dose of Lipitor DVT prophylaxis - patient is on Coumadin Discussed with the patient and nurse DC plan: Plan for eval by EP cardio Dr Wu and poss upgrading PM to biventricular device Elsy Mauro MD Jun 17, 2017 09:51
[2017-06-17] MEDS ORDERED: DILTIAZEM-CD 180 MG CAP ER PO ONE (11:00)
--- NOTE | 2017-06-17 14:32 | EKG ---
Date Performed: 06/17/2017 Time Performed: 07:23:16 PTAGE: 81 years EKG: Atrial fibrillation with intermittent ventricular demand pacemaker. Abnormal ECG No signifi cant change from prior electrocardiogram. PREVIOUS TRACING : 06/15/2017 23.11 DOCTOR: Asad Pittman Interpretating Date/Time 06/17/2017 14:30:39
[2017-06-17] MEDS ORDERED: WARFARIN SOD 2 MG TAB PO ONE (16:00)
[2017-06-17] MEDS: WARFARIN SOD 2.5 MG TAB PO SCH (16:27)
[2017-06-17] MEDS: ATORVASTATIN 40 MG TAB PO SCH (20:31)
[2017-06-17] MEDS: LATANOPROST 0.005% OPHT SOLN 2.5 ML BTL EACH EYE SCH (20:31)
[2017-06-17] MEDS: TEMAZEPAM 15 MG CAP PO PRN (20:37)
[2017-06-18] VITALS (28 sets, daily range): BP systolic 104–155; BP diastolic 53–69; PULSE 67–112; RESP 16–20; TEMP 97.6–98.4; O2SAT 95–99
[2017-06-18 06:18] LABS: INTERNATIONAL NORMALIZED RATIO 1.8 RATIO; PROTHROMBIN TIME - PATIENT 18.4 SEC (9.8-11.6)
[2017-06-18] MEDS: INSULIN ASPART SUPPLEMENTAL SCALE SQ SCH ×4 (08:00→21:57)
--- NOTE | 2017-06-18 08:57 | MB ---
cc: USAMA DSOUZA M.D. DATE OF CONSULTATION: 06/17/2017 REASON FOR CONSULTATION: Atrial fibrillation with biventricular response, shortness of breath. HISTORY: Mr. Larson is a 81-year-old gentleman with history of tachyarrhythmia, shortness of breath, with <<0:34>> accident, septum was normal ejection fraction, previous single chamber permanent pacemaker inserted by Dr. Vicente. He was admitted due to shortness of breath. During hospitalization multiple episodes of atrial fibrillation with biventricular response observed. The patient is symptomatic. I was consulted for further evaluation and management. The chart was reviewed. The patient was evaluated and discussed the case extensively with Dr. Cornejo. ALLERGIES AMIODARONE GLYBURIDE SOCIAL HISTORY Negative for smoking and drinking. FAMILY HISTORY Noncontributory to his current medical condition. PAST MEDICAL HISTORY 1. Had a previous coronary artery bypass grafting in 2008 in [facility]. 2. He has a history of diabetes 3. Hyperlipidemia 4. High blood pressure. CURRENT MEDICATIONS The gentleman is on 1. Cardizem 260 mg a day. 2. He is on Coumadin as directed. 3. Lisinopril 5 mg a day. 4. Insulin. 5. Metoprolol 6. Restoril 7. Zofran. REVIEW OF SYSTEMS He refer currently no chest pain or discomfort. No palpitation. No fever. PHYSICAL EXAMINATION: IN GENERAL: Physical exam, alert, fully oriented. VITAL SIGNS: Blood pressure on evaluation was 137/67 pulse 72, respiratory rate 18 LUNGS: Ventilated. CARDIOVASCULAR SYSTEM: S1-S2 regular. No gallop. ABDOMEN: Soft. No mass. No Bruits. RADIOLOGIC: Current telemetry shows V pacing. Electrocardiogram shows V pacing also. LABORATORY DATA Hemoglobin is 10.2, white blood cell 6.4, potassium is 2.70, creatinine 1.48, troponin less than 0.02. BNP is 2702. RECOMMENDATIONS Mr. Larson's episode of tachyarrhythmia. Currently he is on V pacing. He has allergy to amiodarone. He is on Cardizem and metoprolol. As well as Coumadin. His INR yesterday was 2.0 and this morning it was 1.7. I had a long conversation with him, I discussed the case with Dr. Cornejo. The best approach at this point is atrial fibrillation ablation. An upgrade of pacemaker to dual chamber pacemaker so we can avoid continued V pacing. The risks, the nature and the benefit of the procedure were clearly stated to him. The risks include pneumothorax, cardiac perforation, stroke and even . He understood and agreed to proceed. The gentleman does not want to stay in the hospital for the weekend, he wants to be readmitted on Tuesday. If he is stable then its okay discharge him, the gentleman can be discharged home. I will have my office contact him on Tuesday and schedule him for the procedure. If his INR is labile. Today's INR is 1.7. The gentleman will be a good candidate for Noac. This was extensively discussed with him. I will monitor during his hospitalization, if the patient remains still in the hospital he will be followed tomorrow morning by the on-call surgery technician for our group. MD CARLO Perez/antonio /10:39 PM /7:49 AM
[2017-06-18] MEDS: SODIUM CHLORIDE 0.9% FLUSH 10 ML FLUSH IV FLUSH SCH ×2 (09:17→21:52)
[2017-06-18] MEDS: DOCUSATE SODIUM 50 MG/SENNA 8.6 MG TAB PO SCH ×2 (09:17→21:52)
[2017-06-18] MEDS: METOPROLOL TARTRATE 50 MG TAB PO SCH ×2 (09:17→15:52)
[2017-06-18] MEDS: DILTIAZEM-CD 180 MG CAP ER PO SCH (09:17)
[2017-06-18] MEDS: LISINOPRIL 5 MG TAB PO SCH ×2 (09:17→21:00)
--- NOTE | 2017-06-18 10:04 | HHI.DS ---
Discharge Summary Admission Date Jun 15, 2017 at 16:08 Discharge Date: Jun 18, 2017 Admitting Diagnosis chest pain, chf (1) Status post placement of cardiac pacemaker ICD Code: Z95.0 - Presence of cardiac pacemaker Status: Acute (2) Chronic atrial fibrillation ICD Code: I48.2 - Chronic atrial fibrillation Status: Chronic (3) Mitral regurgitation ICD Code: I34.0 - Nonrheumatic mitral (valve) insufficiency (4) CHF (congestive heart failure) ICD Code: I50.9 - Heart failure, unspecified Status: Acute (5) CAD (coronary artery disease) ICD Code: I25.10 - Atherosclerotic heart disease of [place] coronary artery without angina pectoris Status: Chronic (6) Chest pain ICD Code: R07.9 - Chest pain, unspecified Status: Acute Procedures none Brief History - From Admission Written by Jamee De Paz, acting as scribe for Dr. Mauro on 06/15/17 at 17: 30. 81yo male with PMHX of CAD with previous [place] and CABG, DM, HTN, COPD, HLD, CKD stage 3, MARBIN, atrial fibrillation on Coumadin and hx of tachybrady syndrome s/p pacemaker placement February of this year who presents to [facility] ED with complaints of shortness of breath with minimal exertion and bilateral lower extremity swelling for the past 4 days. He reports associated chest pain with the shortness of breath. He describes the chest pain as a nonradicular pushing sensation. He denies any associated palpitations, nausea, vomiting, abdominal pain or diarrhea. He does endorse lightheadedness with exertion. He states the chest pain is improved with lying flat. He reports increased fatigue. He denies any cough. Patient reports his blood sugars have "leonardo rocketed" over the past 4-5 days. In the ED, CXR shows mild interstitial edema and bilateral small pleural effusions and BNP elevated at 702. He reports improvement after receiving IV Lasix in the ED. He is chest pain free at this time. CBC/BMP: 06/16/17 0522 06/17/17 0547 Significant Findings Laboratory Tests Test 06/15/17 13:02 06/15/17 14:15 06/15/17 21:46 06/16/17 05:20 Red Blood Count 3.45 MIL/MM3 (4.50-5.90) Hemoglobin 10.8 GM/DL (13.0-17.0) Hematocrit 32.0 % (39.0-51.0) Neutrophils (%) (Auto) 73.5 % (16.0-70.0) Monocytes (%) (Auto) 12.8 % (0.0-8.0) Lymphocytes # (Auto) 0.7 TH/MM3 (1.0-4.8) Prothrombin Time 22.1 SEC (9.8-11.6) 20.7 SEC (9.8-11.6) Activated Partial Thromboplast Time 34.3 SEC (24.3-30.1) Blood Urea Nitrogen 24 MG/DL (7-18) 22 MG/DL (7-18) Creatinine 1.45 MG/DL (0.60-1.30) Random Glucose 144 MG/DL (74-106) 109 MG/DL (74-106) Estimat Glomerular Filtration Rate 47 ML/MIN (>89) 54 ML/MIN (>89) Troponin I LESS THAN 0.02 NG/ML B-Type Natriuretic Peptide 702 PG/ML (0-100) Albumin 3.0 GM/DL (3.4-5.0) Total Bilirubin 1.5 MG/DL (0.2-1.0) Potassium Level 3.1 MEQ/L (3.5-5.1) Test 06/16/17 05:22 06/17/17 05:47 06/18/17 05:41 Red Blood Count 3.23 MIL/MM3 (4.50-5.90) Hemoglobin 10.2 GM/DL (13.0-17.0) Hematocrit 29.6 % (39.0-51.0) Monocytes (%) (Auto) 13.2 % (0.0-8.0) Eosinophils (%) (Auto) 6.3 % (0.0-4.0) Lymphocytes # (Auto) 0.7 TH/MM3 (1.0-4.8) Prothrombin Time 17.4 SEC (9.8-11.6) 18.4 SEC (9.8-11.6) Blood Urea Nitrogen 28 MG/DL (7-18) Creatinine 1.48 MG/DL (0.60-1.30) Random Glucose 212 MG/DL (74-106) Estimat Glomerular Filtration Rate 46 ML/MIN (>89) Imaging Last Impressions Chest X-Ray 06/17/17 0600 Signed Impressions: Service Date/Time: Saturday, June 17, 2017 08:40 - CONCLUSION: Small bilateral pleural effusions, slightly decreased in size from the prior examination. No other acute finding is identified. Sherman Lopez MD PE at Discharge GENERAL: This is a well-nourished, well-developed male patient who appears younger than stated age, in no apparent distress. Awake and alert. at the bedside. CARDIOVASCULAR: Regular rate and rhythm without murmurs, gallops, or rubs. RESPIRATORY: Diminished at the bases bilaterally. Clear to auscultation. Breath sounds equal bilaterally. No wheezes, rales, or rhonchi. GASTROINTESTINAL: Abdomen soft, non-tender, nondistended. No hepato-splenomegaly , or palpable masses. No guarding. MUSCULOSKELETAL: Extremities without clubbing or cyanosis. 1+ bilateral pitting edema improved. No joint tenderness, effusion, or edema noted. No calf tenderness. NEUROLOGICAL: Awake and alert. Able to move all extremities spontaneously. Motor and sensory function grossly intact. Normal speech. Pt update on day of discharge Feels better wants to go home. patient will see Dr Wu on Tuesday for biventricular device. patient HR is better controlled. No chest pain or sob. LE edema improved significantly. Ambulating without SOB and satting well on room air. Deceits fever or chills. No n/v/d/c. Hospital Course 81yo male with PMHX of CAD with previous VA and CABG, DM, HTN, COPD, HLD, CKD stage 3, MARBIN, atrial fibrillation on Coumadin and hx of tachybrady syndrome s/p pacemaker placement February of this year who presents to [facility] ED with complaints of shortness of breath with minimal exertion and bilateral lower extremity swelling for the past 4 days. Patient with CHF, decompensated. CXR personally r showing bilateral effusions, mild interstitial congestion. BNP 702, on admission. Received Diuresis with IV Lasix. Monitor electrolytes. Strict I&Os Echocardiogram with EF 55, and moderate MR Patient with persistent Afib failed medical management, consult EP Dr Wu for evaluation patient might benefit for biventricular device. Patient with Atrial fibrillation on Coumadin Continue on home dose of Metoprolol and Diltiazem Plan to upgrading PM to biventricular device on Tuesday per Dr Wu. Patient will return on Tuesday . Dr Wu to make arrangements. Patient was discharged in stable condition to followup as OP with PCP and consultants Pt Condition on Discharge: Stable Discharge Disposition: Discharge Home Discharge Time: > 30 minutes Discharge Instructions DIET: Follow Instructions for: Heart Healthy Diet, Coumadin (Warfarin) Diet Activities you can perform: Regular-No Restrictions Follow up Referrals: Cardiology - 06/21/17 with Nely Wu MD PCP Follow-up - 2-3 Days New Medications: Lisinopril (Lisinopril) 5 Mg Tab 5 MG PO Q12HR for Blood Pressure Management, #60 TAB Continued Medications: Aspirin (Aspirin Low Dose) 81 Mg Chew 81 MG CHEW DAILY, TAB 0 Refills Atorvastatin (Lipitor) 80 Mg Tab 80 MG PO HS for Cholesterol Management, #30 TAB 0 Refills Brimonidine Opth Drops (Brimonidine Opth Drops) 0.2% Soln 1 DROP EACH EYE BID for Intraocular pressure, #1 BOTTLE 0 Refills Cholecalciferol (Vitamin D) 2,000 Unit Cap 2 TAB PO DAILY Cinnamon (Eql Cinnamon) 500 Mg Cap 500 MG PO TID, #1 BOTTLE Diltiazem ER 24 HR (Cartia Xt) 120 Mg Caper 360 MG PO DAILY, #30 CAP 0 Refills Ferrous Sulfate (Ferrous Sulfate) 325 Mg (65 Mg Iron) Tablet 325 MG PO BID for Nutritional Supplement, #30 TAB 0 Refills Furosemide (Furosemide) 40 Mg Tab 40 MG PO DAILY, #30 TAB 0 Refills Glimepiride (Glimepiride) 2 Mg Tab 4 MG PO DAILY for Blood Sugar Management, #30 TAB 0 Refills Take with breakfast or first main meal Glimepiride (Glimepiride) 2 Mg Tab 2 MG PO HS for Blood Sugar Management, #30 TAB 0 Refills Take with breakfast or first main meal Latanoprost Opth Drops (Latanoprost Opth Drops) 0.005% Drops 1 DROP EACH EYE HS for Glaucoma, #2.5 ML 0 Refills Refrigerate until opened. Metformin (Metformin) 500 Mg Tab 750 MG PO BIDPC for Blood Sugar Management, #60 TAB 0 Refills With meals Metoprolol Succinate ER 24 HR (Metoprolol Succinate ER 24 HR) 100 Mg Tab 100 MG PO DAILY, #30 TAB 0 Refills [place]-3 Fatty Acids (Fish Oil) 300 Mg Capsule 1 TAB PO TID Warfarin (Warfarin) 1 Mg Tab 3 MG PO DAILY for Blood Clot Prevention, #30 TAB 0 Refills Discontinued Medications: Hydralazine HCl (Hydralazine HCl) 25 Mg Tablet 50 MG PO DAILY for Blood Pressure Management, #60 TAB 0 Refills Elsy Mauro MD Jun 18, 2017 10:04
--- NOTE | 2017-06-18 11:01 | HHI.PR ---
Subjective Remarks Feels better, is ambulating in the room. He does take a shower. Also wants to go home today. Discussed with Dr. Ryan and discomfort for upgrading the device and chest ache. However the patient does state until Tuesday in the hospital. Denies palpitations, chest pain, shortness of breath. He is saturating well on room air. Objective Vitals Vital Signs Date Time Temp Pulse Resp B/P (MAP) Pulse Ox O2 Delivery O2 Flow Rate FiO2 06/18/17 06:19 71 06/18/17 05:07 75 06/18/17 04:35 72 06/18/17 03:49 101 06/18/17 03:49 98.1 67 16 133/65 (87) 95 06/18/17 02:14 86 06/18/17 01:05 80 06/18/17 00:56 80 06/17/17 23:25 75 06/17/17 23:25 97.9 73 17 126/58 (80) 95 06/17/17 22:18 69 06/17/17 21:15 78 06/17/17 20:00 84 06/17/17 19:25 98.6 94 16 139/66 (90) 96 06/17/17 19:25 81 06/17/17 18:00 74 06/17/17 17:00 78 06/17/17 16:00 80 06/17/17 15:00 97.6 78 16 137/67 (90) 96 06/17/17 15:00 72 06/17/17 14:00 75 06/17/17 13:00 76 06/17/17 12:00 104 I/O 06/17/17 06/17/17 06/17/17 06/18/17 06/18/17 06/18/17 07:00 15:00 23:00 07:00 15:00 23:00 Intake Total 480 ml 240 ml 240 ml Output Total 1250 ml 520 ml 200 ml Balance -770 ml -280 ml 40 ml Intake Oral 480 ml 240 ml 240 ml Output Urine Total 1250 ml 520 ml 200 ml # Voids 1 # Bowel Movements 0 0 Result Diagram: 06/16/1752106/17/17 0547 Imaging Last Impressions Chest X-Ray 06/17/17 06 Signed Impressions: Service Date/Time: Frank, June 17, 2017 08:40 - CONCLUSION: Small bilateral pleural effusions, slightly decreased in size from the prior examination. No other acute finding is identified. Sherman Lopez MD Objective Remarks GENERAL: This is a well-nourished, well-developed male patient who appears younger than stated age, in no apparent distress. Awake and alert. at the bedside. CARDIOVASCULAR: Regular rate and rhythm without murmurs, gallops, or rubs. RESPIRATORY: Diminished at the bases bilaterally. Clear to auscultation. Breath sounds equal bilaterally. No wheezes, rales, or rhonchi. GASTROINTESTINAL: Abdomen soft, non-tender, nondistended. No hepato-splenomegaly , or palpable masses. No guarding. MUSCULOSKELETAL: Extremities without clubbing or cyanosis. 1+ bilateral pitting edema improved. No joint tenderness, effusion, or edema noted. No calf tenderness. NEUROLOGICAL: Awake and alert. Able to move all extremities spontaneously. Motor and sensory function grossly intact. Normal speech. Procedures none A/P Problem List: (1) Status post placement of cardiac pacemaker ICD Code: Z95.0 - Presence of cardiac pacemaker Status: Acute (2) Chronic atrial fibrillation ICD Code: I48.2 - Chronic atrial fibrillation Status: Chronic (3) Mitral regurgitation ICD Code: I34.0 - Nonrheumatic mitral (valve) insufficiency (4) CHF (congestive heart failure) ICD Code: I50.9 - Heart failure, unspecified Status: Acute (5) CAD (coronary artery disease) ICD Code: I25.10 - Atherosclerotic heart disease of [place] coronary artery without angina pectoris Status: Chronic (6) Chest pain ICD Code: R07.9 - Chest pain, unspecified Status: Acute Assessment and Plan 81yo male with PMHX of CAD with previous [place] and CABG, DM, HTN, COPD, HLD, CKD stage 3, MARBIN, atrial fibrillation on Coumadin and hx of tachybrady syndrome s/p pacemaker placement February of this year who presents to [facility] ED with complaints of shortness of breath with minimal exertion and bilateral lower extremity swelling for the past 4 days. CHF, decompensated - CXR personally reviewed showing bilateral effusions, mild interstitial congestion - BNP 702, monitor - Diuresis with IV Lasix. Monitor electrolytes. - Strict I&Os - Echocardiogram EF 55, moderate MR - Fluid and sodium restricted diet -Continue lasix 40 mg IV bid , monitor kidney function closely - continue supplemental oxygen to maintain O2 sats > 92% - PT eval/tx -Consult his cardiology doctor. ff. - With Afib with RVR overnight 06/17. increased cardizem to 360 mg po daily. Patient with persistent Afib failed medical management, consult EP Dr Wu for evaluation patient might benefit for biventricular device. 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 Ross who will see the patient in consultation - initial troponins negative x 2. Continue to trend Alda - ASA daily - IV Morphine prn chest pain - continuous cardiac monitoring Atrial fibrillation on Coumadin - rate controlled - INR therapeutic at 2.2 on admission - Continue home dose of Coumadin. Monitor INR. Pharmacy to dose. - continue Metoprolol and Diltiazem Hypertension - resume home dose of antihypertensives once medication reconciliation updated CKD stage III - creatinine 1.45/GFR 47, on admission, previous creatinine 1.65/GFR 40 03/10 - avoid nephrotoxic agents - monitor kidney function while on IV Lasix DM, type II - hold home Metformin and Glimepiride - accucheck - ISS - heart healthy diabetic diet MARBIN - resume home dose of oral iron supplementation - monitor CBC as indicated Dyslipidemia - resume home dose of Lipitor DVT prophylaxis - patient is on Coumadin Discussed with the patient and nurse DC plan: Plan poss to DC patient tomorrow if cleared by cardio EP cardio Dr Wu plan to upgrade PM to biventricular device on Tuesday , however patient can be DC if stable and to come back on Tuesday Problem Qualifiers (1) CHF (congestive heart failure): Qualified Codes: I50.9 - Heart failure, unspecified (2) Chest pain: Qualified Codes: R07.9 - Chest pain, unspecified Elsy Mauro MD Jun 18, 2017 11:01
--- NOTE | 2017-06-18 11:57 | PD.CARD.PN ---
Subjective Subjective Remarks No events overnight Patient feeling better overall Telemetry with heart rates from 90-120 bpm Objective Medications Current Medications Medications (Trade) Dose Ordered Sig/Kulwant Route Start Time Stop Time Status Last Admin (NS Flush) 2 ml UNSCH PRN IV FLUSH 06/15/17 16:15 (NS Flush) 2 ml BID IV FLUSH 06/15/17 21:00 06/18/17 09:17 (Tylenol) 650 mg Q4H PRN PO 06/15/17 16:15 (Zofran Inj) 4 mg Q6H PRN IVP 06/15/17 16:15 (Restoril) 15 mg HS PRN PO 06/15/17 16:15 06/17/17 20:37 (Narcan Inj) 0.4 mg UNSCH PRN IV PUSH 06/15/17 16:15 (Cyndie-Colace) 1 tab BID PO 06/15/17 21:00 06/18/17 09:17 (Milk Of Magnesia Liq) 30 ml Q12H PRN PO 06/15/17 16:15 (Senokot) 17.2 mg Q12H PRN PO 06/15/17 16:15 (Dulcolax Supp) 10 mg DAILY PRN RECTAL 06/15/17 16:15 (Lactulose Liq) 30 ml DAILY PRN PO 06/15/17 16:15 (Morphine Inj) 2 mg Q4H PRN IM 06/15/17 16:15 (D50w (Vial) Inj) 50 ml UNSCH PRN IV PUSH 06/15/17 18:15 (Glucagon Inj) 1 mg UNSCH PRN OTHER 06/15/17 18:15 (NovoLOG SUPPLEMENTAL SCALE) 1 ACHS SLIDING SCALE SQ 06/15/17 21:00 06/17/17 20:37 Pharmacy Profile Note 0 ml @ 0 mls/hr UNSCH OTHER 06/15/17 18:15 (Xalatan 0.005% Opth Soln) 1 drop HS EACH EYE 06/15/17 21:00 06/17/17 20:31 (Lipitor) 40 mg HS PO 06/15/17 21:00 06/17/17 20:31 (Lopressor) 50 mg Q12HR PO 06/15/17 21:00 06/18/17 09:17 (Prinivil) 5 mg Q12HR PO 06/16/17 10:15 06/18/17 09:17 (Cardizem Cd) 360 mg DAILY PO 06/18/17 09:00 06/18/17 09:17 (Coumadin) 3 mg DAILY@1600 PO 06/18/17 16:00 Vital Signs / I&O Vital Signs Date Time Temp Pulse Resp B/P (MAP) Pulse Ox O2 Delivery O2 Flow Rate FiO2 06/18/17 11:21 98.4 79 19 155/69 (97) 99 06/18/17 06:19 71 06/18/17 05:07 75 06/18/17 04:35 72 06/18/17 03:49 101 06/18/17 03:49 98.1 67 16 133/65 (87) 95 06/18/17 02:14 86 06/18/17 01:05 80 06/18/17 00:56 80 06/17/17 23:25 75 06/17/17 23:25 97.9 73 17 126/58 (80) 95 06/17/17 22:18 69 06/17/17 21:15 78 06/17/17 20:00 84 06/17/17 19:25 98.6 94 16 139/66 (90) 96 06/17/17 19:25 81 06/17/17 18:00 74 06/17/17 17:00 78 06/17/17 16:00 80 06/17/17 15:00 97.6 78 16 137/67 (90) 96 06/17/17 15:00 72 06/17/17 14:00 75 06/17/17 13:00 76 06/17/17 12:00 104 I/O 06/17/17 06/17/17 06/17/17 06/18/17 06/18/17 06/18/17 07:00 15:00 23:00 07:00 15:00 23:00 Intake Total 480 ml 240 ml 240 ml Output Total 1250 ml 520 ml 200 ml Balance -770 ml -280 ml 40 ml Intake Oral 480 ml 240 ml 240 ml Output Urine Total 1250 ml 520 ml 200 ml # Voids 1 # Bowel Movements 0 0 Physical Exam GENERAL: NAD, AAOx3 SKIN: Warm and dry. HEAD: Atraumatic. Normocephalic. EYES: Pupils equal and round. No scleral icterus. No injection or drainage. ENT: No nasal bleeding or discharge. Mucous membranes pink and moist. NECK: Trachea midline. No JVD. CARDIOVASCULAR: Irregularly irregular RESPIRATORY: No accessory muscle use. Clear to auscultation. Breath sounds equal bilaterally. GASTROINTESTINAL: Abdomen soft, non-tender, nondistended. Hepatic and splenic margins not palpable. MUSCULOSKELETAL: Extremities without clubbing, cyanosis, or edema. No obvious deformities. NEUROLOGICAL: Awake and alert. No obvious cranial nerve deficits. Motor grossly within normal limits. Five out of 5 muscle strength in the arms and legs. Normal speech. PSYCHIATRIC: Appropriate mood and affect; insight and judgment normal. Laboratory Laboratory Tests Test 06/18/17 05:41 Prothrombin Time 18.4 SEC Prothromb Time International Ratio 1.8 RATIO Assessment and Plan Problem List: (1) CHF (congestive heart failure) ICD Codes: I50.9 - Heart failure, unspecified Status: Acute (2) Chronic atrial fibrillation ICD Codes: I48.2 - Chronic atrial fibrillation Status: Chronic (3) CAD (coronary artery disease) ICD Codes: I25.10 - Atherosclerotic heart disease of [place] coronary artery without angina pectoris Status: Chronic (4) Mitral regurgitation ICD Codes: I34.0 - Nonrheumatic mitral (valve) insufficiency Assessment and Plan 1) Chronic Afib Not well controlled at this time Will attempt to increase his Lopressor to 50mg TID If better tomorrow, can be discharged for planned ablation on Tuesday 2) Labile INR May need to eventually be changed to a NOAC, will await ablation 3) CHF EF read as normal on echo, but visually somewhat decreased Mild to moderate MR, moderate to severe TR 4) Discussed with the patient's [id number] who is a physician, and is in agreement for him staying to try to help better control heart rates Problem Qualifiers (1) CHF (congestive heart failure): Qualified Codes: I50.9 - Heart failure, unspecified Ho Barraza DO Jun 18, 2017 11:57
[2017-06-18] MEDS ORDERED: METO-309 PO (13:28)
[2017-06-18] MEDS: WARFARIN SOD 3 MG TAB PO SCH (15:52)
[2017-06-18] MEDS ORDERED: WARFARIN SOD 2 MG TAB PO ONE (16:00)
[2017-06-18] MEDS: ATORVASTATIN 40 MG TAB PO SCH (21:52)
[2017-06-18] MEDS: TEMAZEPAM 15 MG CAP PO PRN (22:00)
[2017-06-19] VITALS (28 sets, daily range): BP systolic 117–141; BP diastolic 56–69; PULSE 68–96; RESP 16–20; TEMP 97.9–98.3; O2SAT 96–100
[2017-06-19] MEDS: METOPROLOL TARTRATE 50 MG TAB PO SCH ×4 (00:44→23:29)
[2017-06-19 07:16] LABS: AUTOMATED NEUTROPHIL # 5.1 TH/MM3 (1.8-7.7); BASOPHIL % 0.3 % (0.0-2.0); EOSINOPHIL # 0.6 TH/MM3 (0-0.4); EOSINOPHIL % 8.7 % (0.0-4.0); HEMATOCRIT 31.8 % (39.0-51.0); HEMOGLOBIN 10.6 GM/DL (13.0-17.0); LYMPH % 11.6 % (9.0-44.0); LYMPHOCYTE # 0.9 TH/MM3 (1.0-4.8); MEAN CELL VOLUME 92.1 FL (80.0-100.0); MEAN CORPUSCULAR HEMOGLOBIN 30.7 PG (27.0-34.0); MEAN CORPUSCULAR HGB CONC 33.4 % (32.0-36.0); MEAN PLATELET VOLUME 9.6 FL (7.0-11.0); MONO % 11.3 % (0.0-8.0); MONOCYTE # 0.8 TH/MM3 (0-0.9); NEUT % 68.1 % (16.0-70.0); PLATELET COUNT 271 TH/MM3 (150-450); RED BLOOD COUNT 3.45 MIL/MM3 (4.50-5.90); RED CELL DISTRIBUTION WIDTH 14.7 % (11.6-17.2); WHITE BLOOD COUNT 7.5 TH/MM3 (4.0-11.0)
[2017-06-19 07:34] LABS: BICARBONATE 27.1 MEQ/L (21.0-32.0); CALCIUM 8.7 MG/DL (8.5-10.1); CREATININE 1.37 MG/DL (0.60-1.30)
[2017-06-19 07:37] LABS: INTERNATIONAL NORMALIZED RATIO 2.2 RATIO; PROTHROMBIN TIME - PATIENT 22.5 SEC (9.8-11.6)
[2017-06-19] MEDS: INSULIN ASPART SUPPLEMENTAL SCALE SQ SCH ×4 (08:00→20:58)
--- NOTE | 2017-06-19 08:01 | HHI.PR ---
Subjective Remarks The patient is in bed, appears not to be distress at this time. He has no chest pain or shortness of breath. Lower extremity edema improved. No palpitations. Since he spoke with Dr. Chaudhry and possible procedure is tomorrow. Objective Vitals Vital Signs Date Time Temp Pulse Resp B/P (MAP) Pulse Ox O2 Delivery O2 Flow Rate FiO2 06/19/17 06:00 79 06/19/17 05:00 73 06/19/17 04:15 75 06/19/17 04:00 98.3 73 20 137/65 (89) 96 06/19/17 03:00 82 06/19/17 02:00 76 06/19/17 01:00 76 06/19/17 00:00 75 06/19/17 00:00 97.9 68 20 122/60 (80) 96 06/18/17 23:00 76 06/18/17 22:00 74 06/18/17 21:00 74 06/18/17 20:00 97.6 75 20 111/56 (74) 96 06/18/17 20:00 74 06/18/17 19:00 74 06/18/17 18:26 98 21 06/18/17 18:02 80 06/18/17 17:14 74 06/18/17 16:00 70 06/18/17 15:50 97.8 78 19 104/53 (70) 98 06/18/17 15:00 73 06/18/17 14:23 80 06/18/17 13:42 99 06/18/17 13:05 88 06/18/17 12:00 78 06/18/17 11:21 98.4 79 19 155/69 (97) 99 06/18/17 11:00 73 06/18/17 10:00 94 06/18/17 09:00 112 I/O 06/18/17 06/18/17 06/18/17 06/19/17 06/19/17 06/19/17 07:00 15:00 23:00 07:00 15:00 23:00 Intake Total 240 ml 1200 ml 240 ml Output Total 200 ml Balance 40 ml 1200 ml 240 ml Intake Oral 240 ml 1200 ml 240 ml Output Urine Total 200 ml # Voids 1 4 2 Result Diagram: 12/10/17 0620 12/10/17 0620 Imaging Last Impressions Chest X-Ray 06/17/17 0600 Signed Impressions: Service Date/Time: Saturday, June 17, 2017 08:40 - CONCLUSION: Small bilateral pleural effusions, slightly decreased in size from the prior examination. No other acute finding is identified. Sherman Lopez MD Objective Remarks GENERAL: This is a well-nourished, well-developed male patient who appears younger than stated age, in no apparent distress. Awake and alert. at the bedside. CARDIOVASCULAR: Regular rate and rhythm without murmurs, gallops, or rubs. RESPIRATORY: Diminished at the bases bilaterally. Clear to auscultation. Breath sounds equal bilaterally. No wheezes, rales, or rhonchi. GASTROINTESTINAL: Abdomen soft, non-tender, nondistended. No hepato-splenomegaly , or palpable masses. No guarding. MUSCULOSKELETAL: Extremities without clubbing or cyanosis. 1+ bilateral pitting edema improved. No joint tenderness, effusion, or edema noted. No calf tenderness. NEUROLOGICAL: Awake and alert. Able to move all extremities spontaneously. Motor and sensory function grossly intact. Normal speech. Procedures none A/P Problem List: (1) Status post placement of cardiac pacemaker ICD Code: Z95.0 - Presence of cardiac pacemaker Status: Acute (2) Chronic atrial fibrillation ICD Code: I48.2 - Chronic atrial fibrillation Status: Chronic (3) Mitral regurgitation ICD Code: I34.0 - Nonrheumatic mitral (valve) insufficiency (4) CHF (congestive heart failure) ICD Code: I50.9 - Heart failure, unspecified Status: Acute (5) CAD (coronary artery disease) ICD Code: I25.10 - Atherosclerotic heart disease of [place] coronary artery without angina pectoris Status: Chronic (6) Chest pain ICD Code: R07.9 - Chest pain, unspecified Status: Acute Assessment and Plan 81yo male with PMHX of CAD with previous [place] and CABG, DM, HTN, COPD, HLD, CKD stage 3, MARBIN, atrial fibrillation on Coumadin and hx of tachybrady syndrome s/p pacemaker placement February of this year who presents to [facility] ED with complaints of shortness of breath with minimal exertion and bilateral lower extremity swelling for the past 4 days. CHF, decompensated - CXR personally reviewed showing bilateral effusions, mild interstitial congestion - BNP 702, monitor - Diuresis with IV Lasix. Monitor electrolytes. - Strict I&Os - Echocardiogram EF 55, moderate MR - Fluid and sodium restricted diet -Continue lasix 40 mg IV bid , monitor kidney function closely. Add torsemide 20mg + KCL 20meq daily to prevent recurrent CHF. - continue supplemental oxygen to maintain O2 sats > 92% - PT eval/tx -Consult his cardiology doctor. ff. - With Afib with RVR overnight 06/17. increased cardizem to 360 mg po daily. Patient with persistent Afib failed medical management, consult EP Dr Wu for evaluation patient might benefit for biventricular device. 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 Continue to trend Alda - ASA daily - IV Morphine prn chest pain - continuous cardiac monitoring Atrial fibrillation on Coumadin - rate controlled - INR therapeutic at 2.2 on admission - Continue home dose of Coumadin. Monitor INR. Pharmacy to dose. - continue Metoprolol and Diltiazem Hypertension - resume home dose of antihypertensives once medication reconciliation updated CKD stage III - creatinine 1.45/GFR 47, on admission, previous creatinine 1.65/GFR 40 03/10 - avoid nephrotoxic agents - monitor kidney function while on IV Lasix DM, type II - hold home Metformin and Glimepiride - accucheck - ISS - heart healthy diabetic diet MARBIN - resume home dose of oral iron supplementation - monitor CBC as indicated Dyslipidemia - resume home dose of Lipitor DVT prophylaxis - patient is on Coumadin Discussed with the patient and nurse DC plan: DC when improved EP cardio Dr Wu plan to upgrade PM to biventricular device poss Tuesday or Tuesday06/21/17. Problem Qualifiers (1) CHF (congestive heart failure): Qualified Codes: I50.9 - Heart failure, unspecified (2) Chest pain: Qualified Codes: R07.9 - Chest pain, unspecified Elsy Mauro MD Jun 19, 2017 08:01
[2017-06-19] MEDS: DILTIAZEM-CD 180 MG CAP ER PO SCH (08:29)
[2017-06-19] MEDS: SODIUM CHLORIDE 0.9% FLUSH 10 ML FLUSH IV FLUSH SCH ×2 (08:29→20:47)
[2017-06-19] MEDS: LISINOPRIL 5 MG TAB PO SCH ×2 (08:29→20:46)
[2017-06-19] MEDS: DOCUSATE SODIUM 50 MG/SENNA 8.6 MG TAB PO SCH ×2 (08:29→20:46)
[2017-06-19 08:40] LABS: ACANTHOCYTES 1+ (NORMAL); OVALOCYTES 1+ (NORMAL)
--- NOTE | 2017-06-19 10:23 | PD.CARD.PN ---
Subjective Subjective Remarks No events overnight Patient feeling better overall Telemetry with heart rates now controlled Objective Medications Current Medications Medications (Trade) Dose Ordered Sig/Kulwant Route Start Time Stop Time Status Last Admin (NS Flush) 2 ml UNSCH PRN IV FLUSH 06/15/17 16:15 (NS Flush) 2 ml BID IV FLUSH 06/15/17 21:00 06/19/17 08:29 (Tylenol) 650 mg Q4H PRN PO 06/15/17 16:15 (Zofran Inj) 4 mg Q6H PRN IVP 06/15/17 16:15 (Restoril) 15 mg HS PRN PO 06/15/17 16:15 06/18/17 22:00 (Narcan Inj) 0.4 mg UNSCH PRN IV PUSH 06/15/17 16:15 (Cyndie-Colace) 1 tab BID PO 06/15/17 21:00 06/19/17 08:29 (Milk Of Magnesia Liq) 30 ml Q12H PRN PO 06/15/17 16:15 06/19/17 09:48 (Senokot) 17.2 mg Q12H PRN PO 06/15/17 16:15 (Dulcolax Supp) 10 mg DAILY PRN RECTAL 06/15/17 16:15 (Lactulose Liq) 30 ml DAILY PRN PO 06/15/17 16:15 (Morphine Inj) 2 mg Q4H PRN IM 06/15/17 16:15 (D50w (Vial) Inj) 50 ml UNSCH PRN IV PUSH 06/15/17 18:15 (Glucagon Inj) 1 mg UNSCH PRN OTHER 06/15/17 18:15 (NovoLOG SUPPLEMENTAL SCALE) 1 ACHS SLIDING SCALE SQ 06/15/17 21:00 06/19/17 08:00 Pharmacy Profile Note 0 ml @ 0 mls/hr UNSCH OTHER 06/15/17 18:15 (Xalatan 0.005% Opth Soln) 1 drop HS EACH EYE 06/15/17 21:00 06/17/17 20:31 (Lipitor) 40 mg HS PO 06/15/17 21:00 06/18/17 21:52 (Prinivil) 5 mg Q12HR PO 06/16/17 10:15 06/19/17 08:29 (Cardizem Cd) 360 mg DAILY PO 06/18/17 09:00 06/19/17 08:29 (Coumadin) 3 mg DAILY@1600 PO 06/18/17 16:00 06/18/17 15:52 (Lopressor) 50 mg Q8HR PO 06/18/17 14:00 06/19/17 08:29 Vital Signs / I&O Vital Signs Date Time Temp Pulse Resp B/P (MAP) Pulse Ox O2 Delivery O2 Flow Rate FiO2 06/19/17 06:00 79 06/19/17 05:00 73 06/19/17 04:15 75 06/19/17 04:00 98.3 73 20 137/65 (89) 96 06/19/17 03:00 82 06/19/17 02:00 76 06/19/17 01:00 76 06/19/17 00:00 75 06/19/17 00:00 97.9 68 20 122/60 (80) 96 06/18/17 23:00 76 06/18/17 22:00 74 06/18/17 21:00 74 06/18/17 20:00 97.6 75 20 111/56 (74) 96 06/18/17 20:00 74 06/18/17 19:00 74 06/18/17 18:26 98 21 06/18/17 18:02 80 06/18/17 17:14 74 06/18/17 16:00 70 06/18/17 15:50 97.8 78 19 104/53 (70) 98 06/18/17 15:00 73 06/18/17 14:23 80 06/18/17 13:42 99 06/18/17 13:05 88 06/18/17 12:00 78 06/18/17 11:21 98.4 79 19 155/69 (97) 99 06/18/17 11:00 73 I/O 06/18/17 06/18/17 06/18/17 06/19/17 06/19/17 06/19/17 07:00 15:00 23:00 07:00 15:00 23:00 Intake Total 240 ml 1200 ml 240 ml Output Total 200 ml Balance 40 ml 1200 ml 240 ml Intake Oral 240 ml 1200 ml 240 ml Output Urine Total 200 ml # Voids 1 4 2 Physical Exam GENERAL: NAD, AAOx3 SKIN: Warm and dry. HEAD: Atraumatic. Normocephalic. EYES: Pupils equal and round. No scleral icterus. No injection or drainage. ENT: No nasal bleeding or discharge. Mucous membranes pink and moist. NECK: Trachea midline. No JVD. CARDIOVASCULAR: Irregularly irregular RESPIRATORY: No accessory muscle use. Clear to auscultation. Breath sounds equal bilaterally. GASTROINTESTINAL: Abdomen soft, non-tender, nondistended. Hepatic and splenic margins not palpable. MUSCULOSKELETAL: Extremities without clubbing, cyanosis, or edema. No obvious deformities. NEUROLOGICAL: Awake and alert. No obvious cranial nerve deficits. Motor grossly within normal limits. Five out of 5 muscle strength in the arms and legs. Normal speech. PSYCHIATRIC: Appropriate mood and affect; insight and judgment normal. Laboratory Laboratory Tests Test 06/19/17 06:20 White Blood Count 7.5 TH/MM3 Red Blood Count 3.45 MIL/MM3 Hemoglobin 10.6 GM/DL Hematocrit 31.8 % Mean Corpuscular Volume 92.1 FL Mean Corpuscular Hemoglobin 30.7 PG Mean Corpuscular Hemoglobin Concent 33.4 % Red Cell Distribution Width 14.7 % Platelet Count 271 TH/MM3 Mean Platelet Volume 9.6 FL Neutrophils (%) (Auto) 68.1 % Lymphocytes (%) (Auto) 11.6 % Monocytes (%) (Auto) 11.3 % Eosinophils (%) (Auto) 8.7 % Basophils (%) (Auto) 0.3 % Neutrophils # (Auto) 5.1 TH/MM3 Lymphocytes # (Auto) 0.9 TH/MM3 Monocytes # (Auto) 0.8 TH/MM3 Eosinophils # (Auto) 0.6 TH/MM3 Basophils # (Auto) 0.0 TH/MM3 CBC Comment AUTO DIFF Differential Comment AUTO DIFF CONFIRMED Ovalocytes 1+ Acanthocytes 1+ Prothrombin Time 22.5 SEC Prothromb Time International Ratio 2.2 RATIO Blood Urea Nitrogen 30 MG/DL Creatinine 1.37 MG/DL Random Glucose 153 MG/DL Calcium Level 8.7 MG/DL Sodium Level 140 MEQ/L Potassium Level 4.0 MEQ/L Chloride Level 106 MEQ/L Carbon Dioxide Level 27.1 MEQ/L Anion Gap 7 MEQ/L Estimat Glomerular Filtration Rate 50 ML/MIN Assessment and Plan Problem List: (1) CHF (congestive heart failure) ICD Codes: I50.9 - Heart failure, unspecified Status: Acute (2) Chronic atrial fibrillation ICD Codes: I48.2 - Chronic atrial fibrillation Status: Chronic (3) CAD (coronary artery disease) ICD Codes: I25.10 - Atherosclerotic heart disease of [place] coronary artery without angina pectoris Status: Chronic (4) Mitral regurgitation ICD Codes: I34.0 - Nonrheumatic mitral (valve) insufficiency Assessment and Plan 1) Chronic Afib Now controlled 2) Labile INR May need to eventually be changed to a NOAC, will await ablation 3) CHF EF read as normal on echo, but visually somewhat decreased Mild to moderate MR, moderate to severe TR 4) Somehow the patient got the idea from his [id number] that he was to have the ablation tomorrow Not sure if she talked to Dr. Wu Will discuss with Dr. Wu, if planned for tomorrow will keep in-house If planned for Tuesday then will plan to discharge Problem Qualifiers (1) CHF (congestive heart failure): Qualified Codes: I50.9 - Heart failure, unspecified Ho Barraza DO Jun 19, 2017 10:23
--- NOTE | 2017-06-19 10:58 | HHI.PR ---
Addendum to Inpatient Note Addendum Reason: Additional Documentation Additional Information I'm adding once-a-day diurertic: torsemide 20mg + KCL 20meq juliette to prevent recurrent CHF. Tacho Cornejo MD Jun 19, 2017 10:58
[2017-06-19] MEDS ORDERED: TORS1TAB12 PO (12:05)
[2017-06-19] MEDS ORDERED: POTA20TA5 PO (12:05)
[2017-06-19] MEDS: TORSEMIDE 20 MG TAB PO SCH (12:43)
[2017-06-19] MEDS: POTASSIUM CHLORIDE 20 MEQ CONTROLLED RELEASE TAB PO SCH (12:43)
[2017-06-19] MEDS: WARFARIN SOD 3 MG TAB PO SCH (15:25)
[2017-06-19] MEDS: ATORVASTATIN 40 MG TAB PO SCH (20:46)
[2017-06-19] MEDS: LATANOPROST 0.005% OPHT SOLN 2.5 ML BTL EACH EYE SCH (21:07)
[2017-06-20] VITALS (27 sets, daily range): BP systolic 11–176; BP diastolic 50–74; PULSE 68–83; RESP 16–20; TEMP 97.3–98.2; O2SAT 95–98
[2017-06-20 06:35] LABS: INTERNATIONAL NORMALIZED RATIO 2.5 RATIO; PROTHROMBIN TIME - PATIENT 25.7 SEC (9.8-11.6)
[2017-06-20] MEDS: METOPROLOL TARTRATE 50 MG TAB PO SCH ×3 (06:50→23:08)
--- NOTE | 2017-06-20 07:53 | HHI.PR ---
Subjective Remarks Palpitations at time. says improves with rest . No chest pain. Has sob with ambulation and exertion. LE edema improved . No fever or chills. No n/v/d/c. Objective Vitals Vital Signs Date Time Temp Pulse Resp B/P (MAP) Pulse Ox O2 Delivery O2 Flow Rate FiO2 06/20/17 07:15 96 21 06/20/17 06:00 74 06/20/17 05:00 74 06/20/17 04:00 98.2 74 20 154/70 (98) 98 06/20/17 04:00 74 06/20/17 03:00 74 06/20/17 02:00 72 06/20/17 01:00 74 06/20/17 00:00 76 06/20/17 00:00 98.0 76 20 176/74 (108) 98 06/19/17 23:00 78 06/19/17 22:00 76 06/19/17 21:00 72 06/19/17 20:00 97.9 83 20 124/59 (80) 98 06/19/17 20:00 72 06/19/17 19:00 72 06/19/17 18:00 81 06/19/17 17:04 82 06/19/17 16:00 71 06/19/17 15:25 98.3 74 16 141/64 (89) 100 06/19/17 15:00 73 06/19/17 14:00 92 06/19/17 13:00 96 06/19/17 12:00 84 06/19/17 11:45 98.2 76 17 117/56 (76) 97 06/19/17 11:00 88 06/19/17 10:00 88 06/19/17 09:00 78 06/19/17 08:00 74 I/O 06/19/17 06/19/17 06/19/17 06/20/17 06/20/17 06/20/17 07:00 15:00 23:00 07:00 15:00 23:00 Intake Total 240 ml 840 ml 240 ml Balance 240 ml 840 ml 240 ml Intake Oral 240 ml 840 ml 240 ml # Voids 2 5 2 # Bowel Movements 1 Result Diagram: 06/19/1761906/19/17619 Imaging Last Impressions Chest X-Ray 06/17/17 0600 Signed Impressions: Service Date/Time: Saturday, June 17, 2017 08:40 - CONCLUSION: Small bilateral pleural effusions, slightly decreased in size from the prior examination. No other acute finding is identified. Sherman Lopez MD Objective Remarks GENERAL: This is a well-nourished, well-developed male patient who appears younger than stated age, in no apparent distress. Awake and alert. at the bedside. CARDIOVASCULAR: Regular rate and rhythm without murmurs, gallops, or rubs. RESPIRATORY: Diminished at the bases bilaterally. Clear to auscultation. Breath sounds equal bilaterally. No wheezes, rales, or rhonchi. GASTROINTESTINAL: Abdomen soft, non-tender, nondistended. No hepato-splenomegaly , or palpable masses. No guarding. MUSCULOSKELETAL: Extremities without clubbing or cyanosis. 1+ bilateral pitting edema improved. No joint tenderness, effusion, or edema noted. No calf tenderness. NEUROLOGICAL: Awake and alert. Able to move all extremities spontaneously. Motor and sensory function grossly intact. Normal speech. Procedures none A/P Problem List: (1) Status post placement of cardiac pacemaker ICD Code: Z95.0 - Presence of cardiac pacemaker Status: Acute (2) Chronic atrial fibrillation ICD Code: I48.2 - Chronic atrial fibrillation Status: Chronic (3) Mitral regurgitation ICD Code: I34.0 - Nonrheumatic mitral (valve) insufficiency (4) CHF (congestive heart failure) ICD Code: I50.9 - Heart failure, unspecified Status: Acute (5) CAD (coronary artery disease) ICD Code: I25.10 - Atherosclerotic heart disease of [place] coronary artery without angina pectoris Status: Chronic (6) Chest pain ICD Code: R07.9 - Chest pain, unspecified Status: Acute Assessment and Plan 81yo male with PMHX of CAD with previous MS and CABG, DM, HTN, COPD, HLD, CKD stage 3, MARBIN, atrial fibrillation on Coumadin and hx of tachybrady syndrome s/p pacemaker placement February of this year who presents to [facility] ED with complaints of shortness of breath with minimal exertion and bilateral lower extremity swelling for the past 4 days. CHF, decompensated - CXR personally reviewed showing bilateral effusions, mild interstitial congestion - BNP 702, monitor - Diuresis with IV Lasix. Monitor electrolytes. - Strict I&Os - Echocardiogram EF 55, moderate MR - Fluid and sodium restricted diet -Continue lasix 40 mg IV bid , monitor kidney function closely. Add torsemide 20mg + KCL 20meq daily to prevent recurrent CHF. - continue supplemental oxygen to maintain O2 sats > 92% - PT eval/tx -Consult his cardiology doctor. ff. - With Afib with RVR overnight 06/17. increased cardizem to 360 mg po daily. Patient with persistent Afib failed medical management, consult EP Dr Wu for evaluation patient might benefit for biventricular device. CAD s/p previous MS and CABG Chest pain - c/o chest pain with dyspnea and exertion, suspect demand ischemia - patient is chest pain free after receiving IV Lasix in the ED - ED physician discussed with patients field handyman Dr. Ross who will see the patient in consultation - initial troponins negative x 2. Continue to trend Alda - ASA daily - IV Morphine prn chest pain - continuous cardiac monitoring Atrial fibrillation on Coumadin - rate controlled - INR therapeutic at 2.2 on admission - Continue home dose of Coumadin. Monitor INR. Pharmacy to dose. - continue Metoprolol and Diltiazem Hypertension - resume home dose of antihypertensives once medication reconciliation updated CKD stage III - creatinine 1.45/GFR 47, on admission, previous creatinine 1.65/GFR 40 03/10 - avoid nephrotoxic agents - monitor kidney function while on IV Lasix DM, type II - hold home Metformin and Glimepiride - accucheck - ISS - heart healthy diabetic diet MARBIN - resume home dose of oral iron supplementation - monitor CBC as indicated Dyslipidemia - resume home dose of Lipitor DVT prophylaxis - patient is on Coumadin Discussed with the patient and nurse DC plan: DC when improved EP cardio Dr Wu plan to upgrade PM to biventricular device poss later today 06/20 or Tuesday06/21/17. Problem Qualifiers (1) CHF (congestive heart failure): Qualified Codes: I50.9 - Heart failure, unspecified (2) Chest pain: Qualified Codes: R07.9 - Chest pain, unspecified Elsy Mauro MD Jun 20, 2017 07:53
[2017-06-20] MEDS: INSULIN ASPART SUPPLEMENTAL SCALE SQ SCH ×4 (08:00→21:02)
[2017-06-20] MEDS: POTASSIUM CHLORIDE 20 MEQ CONTROLLED RELEASE TAB PO SCH (08:22)
[2017-06-20] MEDS: DILTIAZEM-CD 180 MG CAP ER PO SCH (08:22)
[2017-06-20] MEDS: LISINOPRIL 5 MG TAB PO SCH ×2 (08:22→20:15)
[2017-06-20] MEDS: TORSEMIDE 20 MG TAB PO SCH (08:22)
[2017-06-20] MEDS: DOCUSATE SODIUM 50 MG/SENNA 8.6 MG TAB PO SCH ×2 (08:23→20:16)
[2017-06-20] MEDS: SODIUM CHLORIDE 0.9% FLUSH 10 ML FLUSH IV FLUSH SCH ×2 (08:23→20:16)
[2017-06-20] MEDS: WARFARIN SOD 2 MG TAB PO SCH (16:54)
[2017-06-20] MEDS: ATORVASTATIN 40 MG TAB PO SCH (20:15)
[2017-06-20] MEDS: LATANOPROST 0.005% OPHT SOLN 2.5 ML BTL EACH EYE SCH (20:16)
[2017-06-21] VITALS (21 sets, daily range): BP systolic 118–145; BP diastolic 53–79; PULSE 60–92; RESP 16–19; TEMP 97.4–98; O2SAT 94–98
[2017-06-21] MEDS ORDERED: CHLORHEXIDINE GLUCONATE 2 % 1 PACK (2 CLOTHS) TOPICAL PRN (02:30)
[2017-06-21] MEDS ORDERED: LACTATED RINGER'S 1000 ML IV PRN (02:30)
[2017-06-21] MEDS ORDERED: SODIUM CHLORID 0.9% 500 ML IV PRN (02:30)
[2017-06-21] MEDS ORDERED: INSULIN HUMAN REGULAR 1,000 UNITS/10 ML VIAL SQ PRN (02:30)
[2017-06-21 06:05] LABS: INTERNATIONAL NORMALIZED RATIO 2.4 RATIO; PROTHROMBIN TIME - PATIENT 24.6 SEC (9.8-11.6)
[2017-06-21] MEDS: METOPROLOL TARTRATE 50 MG TAB PO SCH ×2 (06:07→14:43)
[2017-06-21] MEDS: INSULIN ASPART SUPPLEMENTAL SCALE SQ SCH ×4 (08:00→21:00)
[2017-06-21] MEDS: DILTIAZEM-CD 180 MG CAP ER PO SCH (08:54)
[2017-06-21] MEDS: TORSEMIDE 20 MG TAB PO SCH (08:54)
[2017-06-21] MEDS: POTASSIUM CHLORIDE 20 MEQ CONTROLLED RELEASE TAB PO SCH (08:54)
[2017-06-21] MEDS: SODIUM CHLORIDE 0.9% FLUSH 10 ML FLUSH IV FLUSH SCH ×2 (08:54→21:00)
[2017-06-21] MEDS: LISINOPRIL 5 MG TAB PO SCH ×2 (08:54→21:59)
[2017-06-21] MEDS: DOCUSATE SODIUM 50 MG/SENNA 8.6 MG TAB PO SCH ×2 (08:55→21:00)
[2017-06-21] MEDS ORDERED: ROCURONIUM INJ 50 MG/5 ML SYRINGE IV PUSH ONE (12:00)
[2017-06-21] MEDS ORDERED: LIDOCAINE HCL 1% PF 5 ML SYRINGE OTHER ONE (12:00)
[2017-06-21] MEDS ORDERED: NEOSTIGMINE 5 MG/5 ML SYRINGE IV PUSH ONE (12:00)
[2017-06-21] MEDS ORDERED: PROPOFOL 200 MG/20 ML AMP IV ONE (12:00)
[2017-06-21] MEDS ORDERED: ONDANSETRON HCL 4 MG/2 ML VIAL IV PUSH ONE (12:00)
[2017-06-21] MEDS ORDERED: ePHEDrine/NS 25 MG/5 ML SYRINGE IV ONE (12:00)
[2017-06-21] MEDS ORDERED: PHENYLEPH/NS 1000 MCG/10 ML SYR IV ONE (12:00)
[2017-06-21] MEDS: WARFARIN SOD 2 MG TAB PO SCH (16:00)
[2017-06-21] MEDS ORDERED: HEPARIN-NS/PF INJ 1,500 ML ONE (17:12)
[2017-06-21] MEDS ORDERED: LEVOFLOXACIN 500 MG PREMIX INJ 100 ML IV ONE (17:13)
[2017-06-21] MEDS ORDERED: HEPARIN SODIUM - IV 10,000 UNITS/10 ML VIAL ONE (17:25)
[2017-06-21] MEDS ORDERED: ISOPROTERENOL HCL 1 MG/5 ML AMP ONE (17:25)
[2017-06-21] MEDS ORDERED: PROTAMINE SULFATE 50 MG/5 ML VIAL ONE (17:25)
[2017-06-21] MEDS ORDERED: SODIUM CHLOR 0.9% 250 ML INJ 250 ML ONE ×2 (17:26→18:35)
[2017-06-21] MEDS ORDERED: LIDOCAINE HCL 2% 50 ML VIAL ONE (18:35)
[2017-06-21] MEDS ORDERED: ceFAZolin INJ 1,000 MG VIAL ONE (18:35)
[2017-06-21] MEDS ORDERED: VANCOMYCIN 500 MG VIAL ONE (18:35)
[2017-06-21] MEDS ORDERED: VANCOMYCIN HCL 1000 MG VIAL ONE (18:35)
--- NOTE | 2017-06-21 18:50 | CATHPROC ---
[employer] HIS Report Study Information Study Number Admission Scheduled Start Study Start [id number] Jun 15 2017 4:08PM 06/20/2017 Jun 21 2017 4:26PM Moira Service Electrophysiology Study Admit Source Facility Department Other [facility] - Miter Saw Operator Physician and Clinical Staff Initial Nely Rollins Mexican Food Machine Tender Tracie Denson,RUSTY Mexican Food Machine Tender Yvette Peña,LEGAL EXAMINER TECH2 Other Anesthesia, BUDGET REPORT CLERK Recorder Sofiya Lemus,RN Recorder Mine Aceves,BSRN Scrub Markus Mcarthur,RT(R) Procedures Performed Procedure Ablation Procedure Equipment Time Director Of Partner Marketing Description Size Mfg Part Number Used/Scraped NEEDLE, TRANSSEPTAL NRG 98 16:36 [facility]-[id number] Used C1 BIOSBiomode - Biomolecular DeterminationTER CATHETER, CELSIUS DS, 8MM, F [id number] 17:48 FR 7 Used INC. TYPE QUAD *[id number] [employer]/ EP 16:36 KIT, TRANSDUCER / AFIB [id number] Used PACER [id number] CATHETER, TACTICATH ABLAT BUNDLE 16:36 BUND[facility] Used 65 BUNDLE *[id number]- BUNDLE [id number] CATHETER, FR7 OPTIMA SPIRAL 16:36 BUND[employer] [employer] FR7 *[id number]- Used BUNDLE BUNDLE [id number] 16:36 [employer]UND[employer] CATHETER, JSN, QUAD BUNDLE FR 5 *[id number]- Used BUNDLE [id number] 16:36 BUND[employer] CATHETER, JSN, QUAD BUNDLE FR 5 *[id number]- Used BUNDLE [id number] SET, COOL POINT TUBING 16:36 BUND[employer] *[id number]- Used BUNDLE BUNDLE SHEATH, FR8.5 STEERABLE SM 16:36 BUNDLE-[employer] 71CM [id number] Used 71CM BUNDLE COVER, TRANSDUCER CABLE 16:36 [employer] 612-113 Used ACUNAV 16:36 CORDIS/PACER SHEATH, FR10 MELLY 11CM FR 10 [id number] Used 16:36 CORDIS/PACER SHEATH, FR9 MELLY 11CM FR 9 [id number] Used [id number] 16:36 [employer] PACK, CCL CUSTOM * Used *[id number] 16:36 MEDLINE PACER HARDEN, LIMB * 5140 *[id number] Used [id number] 16:36 [facility] MEDICAL SHEATH, FR4.5 PRELUDE 11CM FR 4.5 Used [id number] 16:36 NAMIC TUBING, HIGH PRESSURE 48" 48" Used *[id number] 16:36 NAMIC TUBING, HIGH PRESSURE 48" 48" Used *[id number] 16:36 MEDICAL BLANKET,WARM AIR CCL * Used *[id number] 16:36 [facility] MEDICAL ELECTRODE KIT, DARSHAN X SURFACE * Used *[id number] [id number] 16:36 [facility] MEDICAL SHEATH, EPS, FR6 FAST CATH FR 6 Used *[id number] 16:36 [facility] MEDICAL SHEATH, EPS, FR7 FAST CATH FR 7 [id number] Used 198804 16:36 [facility] MEDICAL SHEATH, EPS, FR8 FAST CATH FR 8 Used *[id number] CATHETER, ACUNAV FR10 ICE [id number] 17:39 KATYA FR 10 Used (KATYA) *[id number] [facility] PAD, ELECTROSURGICAL 16:36 * [id number] *[id number] Used SURGICAL GROUNDING (BLUE) History: Current Medications Medication Dosage/Unit Route Frequency Last Date/Time Taken LIPITOR LOPRESSOR ASA Coumadin History: Allergies Allergy Reaction amiodarone glyburide History: Risk Factors Hypertension Dyslipidemia Previous [place] Previous Heart Failure Yes Yes Yes Yes Prior CABG Yes Chronic Lung Diabetes Diabetes Therapy Disease Yes Yes Insulin Labs Hgb (g/dl) Hct (%) RBC (MIL/MM3) WBC (l/cumm) Platelets (thousands) 11.60-17.00 35.00-51.00 4.00-5.90 4.00-11.00 150.00-450.00 10.0 31 3.4 7.5 271 Glucose (mg/dl) BUN (mg/dl) Creatinine (mg/dl) BUN:Creatinine (1:x) 74.00-106.00 7.00-18.00 0.50-1.30 10.00-20.00 153 30 1.4 21.4 Na (meq/l) K (meq/l) Cl (meq/l) CO2 (mmol/L) Ca (mg/dl) 136.00-145.00 3.50-5.10 98.00-107.00 21.00-32.00 8.50-10.10 140 4 106 27.1 8.7 INR (PTT:PT) 0.90-1.10 2.4 Medication Medication Total Dose (Bolus/Oral) Medication Total Dosage/Unit 1% XYLOCAINE 40 mL HEPARIN 4000 units PROTAMINE 40 mg Medications (Bolus/Oral) Medication Time Given Dosage/Unit Administered By Reason 1% XYLOCAINE 06/21/2017 5:36:22 PM 20 mL Nely Wu For pain 20 mL 1% XYLOCAINE given in lab by Nely Wu in Left Groin via Subcutaneous. Ordered by Barron Wu. Reason: For pain. 1% XYLOCAINE 06/21/2017 5:37:59 PM 20 mL Nely Wu As per physicians ve rbal order 20 mL 1% XYLOCAINE given in lab by Nely Wu in Right Groin via Subcutaneous. Ordered by Shauna Wu. Reason: As per physicians verbal order. HEPARIN 06/21/2017 6:12:42 PM 4000 units Anesthesia, BUDGET REPORT CLERK As per physicians verbal order 4000 units HEPARIN given in lab by Anesthesia, BUDGET REPORT CLERK via Peripheral IV. Ordered by Nely Wu. Reas on: As per physicians verbal order. PROTAMINE 06/21/2017 6:33:14 PM 40 mg Anesthesia, BUDGET REPORT CLERK As per physicians ve rbal order 40 mg PROTAMINE given in lab by Anesthesia, BUDGET REPORT CLERK via Peripheral IV. Ordered by Nely Wu. Reason: As per physicians verbal order. Medication (Drip) Medication Time Given Dosage/Unit Concentration/Unit Diluent (ml) Solution ISUPREL 06/21/2017 6:19:00 PM 10 mcg/min 1 mg 250 NaCl .9 10 mcg/min ISUPREL given in lab by Anesthesia, BUDGET REPORT CLERK via Peripheral IV. Pump/Drip Flow = 150 ml/hr usi ng NaCl .9 with a concentration of 1 mg in 250 ml. Ordered by Nely Wu. Reason: As per physicians verbal order. IV Solutions 06/21/2017 5:09:19 PM 0 mL (IV) NaCl .9 IV Solutions given in lab by Mine Aceves BSRN in Left Antecubital via Peripheral IV. Pump/Drip Flow = 50 ml/hr using NaCl .9. Ordered by Nely Wu. Reason: As per physicians verbal order. IV Solutions 06/21/2017 5:10:09 PM 0 mL (IV) NaCl .9 IV Solutions given in lab by Mine Aceves BSRN in Right Forearm via Peripheral IV. Pump/Drip Galindo w = 50 ml/hr using NaCl .9. Ordered by Nely Wu. Reason: As per physicians verbal order. LEVAQUIN 06/21/2017 5:15:00 PM 250 mL/hr 500 100 NaCl .9 250 mL/hr LEVAQUIN given in lab by Mine Aceves BSRN via Peripheral IV. Pump/Drip Flow = 50 ml/h r using NaCl .9 with a concentration of 500 in 100 ml. Ordered by Nely Wu. Reason: As per physicians verbal order. Initial Case Assessment Cardiovascular HR NIBP 75 130/58 Edema Present Skin color Skin None Normal Warm Dry Neurological State Oriented to time-place- Alert Moves all extremities person Respiration - General Respiration Rate SpO2 (%) (B/min) 18 99 Final Case Assessment Cardiovascular HR NIBP 108 145/42 Edema Present Skin color Skin None Normal Warm Respiration - General Respiration Rate SpO2 (%) (B/min) 20 98 Chronological Log Time Study Chronological Log 17:00:00 Patient arrived via Bed. 17:04:42 Patient Name, D.O.B, / Armband Verified By R.N. 17:05:00 Consent signed by the physician and the patient and verified by the Miter Saw Operator staff. 17:05:34 Pre-op and post- op instructions given; patient acknowledges understanding of instructions. 17:05:37 Verbal Stimulation=2 Physical Stimulation=2 Airway=2 Respiration=2 TOTAL=10. (0=absent, 1=l imited, 2=present) 17:05:50 Anesthesia at bedside. Assumes care of patient. Juliana RENEE 17:08:31 Patient has been NPO for More than 6Hrs. 17:08:37 Skin Breakdown- none 17:08:44 Patient Warmer Placed on the Table. 17:08:50 Disposable Defibrillator Pads Placed On Patient. 17:08:52 Geovanny Prominences Protected 17:08:54 A # 20 IV was noted in the Antecubital (left). Grade = ~GRADE~ 17:09:07 A # 20 IV was noted in the Forearm (right). Grade = ~GRADE~ IV Solutions given in lab by Mine Aceves BSRN in Left Antecubital via Peripheral IV. Pump /Drip Flow = 50 ml/hr 17:09:19 using NaCl .9. Ordered by Nely Wu. Reason: As per physicians verbal order. IV Solutions given in lab by Mine Aceves BSRN in Right Forearm via Peripheral IV. Pump/Dr ip Flow = 50 ml/hr 17:10:09 using NaCl .9. Ordered by Nely Wu. Reason: As per physicians verbal order. 17:10:30 History and physical on the chart or being dictated. Assessment: Initial Case, HR=75 BPM, QVHJ=067/58 mmhg, Edema=None, Color=Normal, Skin = Warm, D ry 17:10:53 Neurological: State=Alert, Ox3, ZAVALETA Respiration: Resp=18 B/min, SpO2=99 % 17:11:00 Table restraints applied according to hospital policy 17:11:05 Right groin prepped with 2% chlorhexidine, and draped after a 3 min. waiting time. 17:11:08 Left groin prepped with 2% chlorhexidine, and draped after a 3 min. waiting time. 250 mL/hr LEVAQUIN given in lab by Mine Aceves BSRN via Peripheral IV. Pump/Drip Flow = 5 0 ml/hr using NaCl 17:15:00 .9 with a concentration of 500 in 100 ml. Ordered by Nely Wu. Reason: As per physicians v erbal order. 17:23:03 Indwelling uretheral catheter inserted by Brittany DE LA CRUZ with clear yellow urine noted. 17:33:58 Immediate Presedation assesment performed by physician. Time Out. Correct patient, procedure, procedure equipment, site and side verified with physicia n present. Time 17:34:02 concurred by MD, individual staff and BUDGET REPORT CLERK. Time Out #2 - Consents verified, patient in correct position, all results are labled and displa yed, safety precautions 17:34:06 taken, antibiotics administered. Time out concurred by MD, individual staff and BUDGET REPORT CLERK in procedu re 17:34:09 Case Start 17:34:36 RIVERA begun at bedside. 17:35:57 RIVERA completed. 20 mL 1% XYLOCAINE given in lab by Nely Wu in Left Groin via Subcutaneous. Ordered by Nely Barber. 17:36:22 Reason: For pain. 17:36:38 Vascular access was obtained in the Fem Art (left). 17:36:50 Vascular access was obtained in the Fem Vein (left). 17:36:53 Vascular access was obtained in the Fem Vein (left). 17:36:54 Vascular access was obtained in the Fem Vein (left). 17:37:04 A SHEATH, FR4.5 PRELUDE 11CM FR 4.5 was advanced into the Fem Art (left) using the Percutan eous technique. 17:37:19 A SHEATH, EPS, FR6 FAST CATH FR 6 was advanced into the Fem Vein (left) using the Percutane ous technique. 17:37:31 A SHEATH, EPS, FR7 FAST CATH FR 7 was advanced into the Fem Vein (left) using the Percutane ous technique. 17:37:42 A SHEATH, FR10 MELLY 11CM FR 10 was advanced into the Fem Vein (left) using the Percutaneo us technique. 20 mL 1% XYLOCAINE given in lab by Nely Wu in Right Groin via Subcutaneous. Ordered by Nely Venegas. 17:37:59 Reason: As per physicians verbal order. 17:38:07 Vascular access was obtained in the Fem Vein (right). 17:38:14 A SHEATH, EPS, FR8 FAST CATH FR 8 was advanced into the Fem Vein (right) using the Percutan eous technique. A CATHETER, JSN, QUAD BUNDLE FR 5 was advanced vis Fem Vein (left) and placed in the CS. Placem ent was visually 17:38:30 confirmed under fluoroscopy. A CATHETER, JSN, QUAD BUNDLE FR 5 was advanced vis Fem Vein (left) and placed in the HIS. Place ment was 17:39:02 visually confirmed under fluoroscopy. A CATHETER, CELSIUS DS, 8MM, F TYPE QUAD FR 7 was advanced vis Fem Vein (left) and placed in th e HRA. 17:47:47 Placement was visually confirmed under fluoroscopy. 17:53:12 Ablation in progress. 18:11:35 Ablation catheter removed. A SHEATH, FR8.5 STEERABLE SM 71CM BUNDLE 71CM was exchanged in the Fem Vein (right). This was n ecessary in 18:12:12 order for catheter support. 4000 units HEPARIN given in lab by Anesthesia, BUDGET REPORT CLERK via Peripheral IV. Ordered by Nely Wu . Reason: As per 18:12:42 physicians verbal order. 18:14:03 Agiles inserted into RA. 18:14:52 Ablation continues. 18:17:10 Reference ECG taken 18:17:18 Ablation stopped. 10 mcg/min ISUPREL given in lab by Anesthesia, BUDGET REPORT CLERK via Peripheral IV. Pump/Drip Flow = 150 ml /hr using NaCl .9 18:19:00 with a concentration of 1 mg in 250 ml. Ordered by Nely Wu. Reason: As per physicians ve rbal order. 18:19:00 Activated Clotting Time Drawn 18:24:18 ACT (Normal Range 90-180) = 266 18:30:12 Isuprel gtt dc'd. 40 mg PROTAMINE given in lab by Anesthesia, BUDGET REPORT CLERK via Peripheral IV. Ordered by Nely Wu. Reason: As per 18:33:14 physicians verbal order. 18:37:[address] Wu 18:45:26 Activated Clotting Time Drawn 18:45:35 Ablation procedure performed: Aflutter. 18:45:46 EP Procedure was performed. 18:47:41 ACT (Normal Range 90-180) = 142 18:48:11 Case End 18:48:19 Sheath(s) left in place, will be removed in Holding Area Assessment: Final Case, ZP=904 BPM, HWAL=698/42 mmhg, Edema=None, Color=Normal, Skin = Warm 18:48:24 Respiration: Resp=20 B/min, SpO2=98 % 18:49:07 No case complications noted. 18:49:10 Cine recording checked. 18:50:00 NOTE: This patient is undergoing an additional procedure while still in the Cardiac Cath L ab. End Study - Contrast Media Used In Study Contrast Total Opened (mL) Total Used (mL) Total Wasted (mL) Unspecified 0 0 0 End Study - Maximum Contrast Load Max Contrast Load (mL) 216.1 End Study - Radiation Exposure Fluoro Time (minutes) 9.5 End Study - Patient Disposition Complications Transferred To Interventional Outcome No Telemetry Bed successful
[2017-06-21] MEDS ORDERED: METOCLOPRAMIDE HCL 10 MG/2 ML VIAL IV PUSH PRN (19:45)
[2017-06-21] MEDS ORDERED: BACITRACIN OINT 0.9 GM PKT TOP ONE (19:45)
[2017-06-21] MEDS ORDERED: ATROPINE SULFATE 1 MG/ML VIAL IV PUSH PRN (19:45)
[2017-06-21] MEDS ORDERED: LORazepam 2 MG/ML VIAL IV PUSH PRN (19:45)
[2017-06-21] MEDS ORDERED: ONDANSETRON HCL 4 MG/2 ML VIAL IV PUSH PRN (19:45)
[2017-06-21] MEDS ORDERED: LIDOCAINE HCL 1% 50 ML VIAL INFIL PRN (19:45)
[2017-06-21] MEDS ORDERED: SODIUM CHLOR 0.9% 250 ML INJ 250 ML IV PRN (19:45)
[2017-06-21] MEDS ORDERED: oxyCODONE/ACETAMINOPHEN 5 MG/325 MG TAB PO PRN ×2 (19:45)
--- NOTE | 2017-06-21 20:03 | CATHPROC ---
Primo1D HIS Report Study Information Study Number Admission Scheduled Start Study Start [id number] Jun 15 2017 4:08PM 06/21/2017 Jun 21 2017 6:50PM [facility] Service Cardiac Pacer/ICD Admit Source Facility Department Other [facility] - Warrant Server Physician and Clinical Staff Initial Nely Rollins Content Checker Markus Mcarthur,RT(R) Other Anesthesia, LOFT RIGGER Recorder Mine Aceves,BSRN Recorder Sofiya Lemus,JONO Scrub Tracie Denson RCIS Procedures Performed Procedure Lead Insertion Equipment Time Emergency Vehicle Operations Instructor Description Size Mfg Part Number Used/Scraped 19:20 BIOTRONIK LEAD, SOLIA 60 53 PRO MRI * [id number] Used 19:24 BIOTRONIK PACEMAKER, ELUNA 8 ANDREINA DDDR [id number] Used DERMABOND, ADHESIVE SKIN [id number] 18:51 CORDIS/PACER * Used GLUE MINI *[id number] 18:51 MEDLINE INDUSTRIES SUTURE, STRIP PLUS 1/2" * Used *[id number] 18:51 MEDLINE PACER HARDEN, LIMB * 2530 *[id number] Used [id number] 18:51 MEDLINE PACER PACK, PACER CUSTOM * Used *[id number] 19:06 Dreamscape Blue PACER SAFE SHEATH, FR7, 13CM FR 7 [id number] Used 19:02 Needle Sponge Count 2 22 Used 19:02 Needle Sponge Count 2 2 Used 19:02 Needle Sponge Count 20 200 Used SUTURE, 0 ETHIBOND [CT1] (CX21D), 8pk SUTURE, 2-0 VICRYL [CT1] ([id number]) SUTURE, 2-0 VICRYL [CT1] ([id number]) [id number] 18:51 [employer],WARM AIR CCL * Used *[id number] [facility] PAD, ELECTROSURGICAL 18:51 * [id number] *[id number] Used SURGICAL GROUNDING ORANGE [id number] 18:51 [employer] KRISHNA. / * Used *[id number] Equipment Model, Serial, Lot Number and Expiration Data Description Model Number Serial Number Lot Number Expiration Date LEAD, SOLIA 60 53 PRO MRI [id number] 05-10-2019 PACEMAKER, ELUNA 8 ANDREINA [id number] 02-07-2018 Medication Medication Total Dose (Bolus/Oral) Medication Total Dosage/Unit 2% XYLOCAINE 50 mL Medications (Bolus/Oral) Medication Time Given Dosage/Unit Administered By Reason 2% XYLOCAINE 06/21/2017 7:13:34 PM 50 mL Nely Wu 50 mL 2% XYLOCAINE given in lab by Nely Wu in Left upper chest via Subcutaneous. Medication (Drip) Medication Time Given Dosage/Unit Concentration/Unit Diluent (ml) Solution ANCEF 06/21/2017 6:45:50 PM 2 g 2 g ANCEF given in lab by Valeri LOFT RIGGER via Peripheral IV. Ordered by Nely Wu. Reason: As pe r physicians verbal order. VANCOMYCIN DRIP 06/21/2017 6:45:00 PM 1 g 1 g VANCOMYCIN DRIP given in lab by Valeri LOFT RIGGER via Peripheral IV. Ordered by Nely Wu. Hewitt son: As per physicians verbal order. Final Case Assessment Cardiovascular HR Rhythm NIBP Chest Pain 60 sr 119/56 0 Edema Present Skin color Skin None Normal Warm Dry Circulatory - Right Pulses Dorsalis Pedis 1 Scale (0,1,2,3,4,d) Circulatory - Left Pulses Dorsalis Pedis 1 Scale (0,1,2,3,4,d) Circulatory - Lower Extremities Color Lower Right Color Lower Left Normal Normal Neurological State Unresponsive Comment: intubated et under anesthesia care Respiration - General Respiration Rate SpO2 (%) (B/min) 16 100 Respiration - Ventilator Type Intubation Type ET(oral) Chronological Log Time Study Chronological Log 18:44:00 Initial procedure has been completed. Beginning additional procedure. 18:44:08 NOTE: This patient is undergoing an additional procedure while still in the Cardiac Cath L ab. 18:44:09 Initial procedure has been completed. Beginning additional procedure. 18:44:10 Anesthesia remains at bedside. Assuming care of patient. 1 g VANCOMYCIN DRIP given in lab by Valeri LOFT RIGGER via Peripheral IV. Ordered by Jose Wu Reason: As per 18:45:00 physicians verbal order. 2 g ANCEF given in lab by VÍCTOR Trammell via Peripheral IV. Ordered by Nely Wu. Reason: As per physicians 18:45:50 verbal order. 18:51:41 Anesthesia remains at bedside. 18:51:53 Bovie ground pad applied to: right thigh 18:52:03 Disposable Defibrillator Pads Placed On Patient. 18:52:06 2% CHLORHEXIDINE GLUCONATE WASH AND NASAL SWIPE DONE PRIOR TO PROCEDURE. 18:52:22 Left Upper Chest Prepped Times Two. 18:54:59 Skin Breakdown- scab noted under left clavicle First Sponge And Instrument Count Done by Tracie Denson RCIS. 19:01:22 Hypo's: 2, Sponges: 20, Bovie/scratch: 2 Sutures: 10, Blades: 1, Instruments: 26, Syveck Patches: 0 Time Out. Correct patient, procedure, procedure equipment, site and side verified with physicia n present. Time 19:13:00 concurred by MD, individual staff and LOFT RIGGER. Time Out #2 - Consents verified, patient in correct position, all results are labled and displa yed, safety precautions 19:13:22 taken, antibiotics administered. Time out concurred by MD, individual staff and LOFT RIGGER in procedu re 19:13:30 Case Start 19:13:34 50 mL 2% XYLOCAINE given in lab by Nely Wu in Left upper chest via Subcutaneous. 19:14:47 Surgical Incision Made. 19:15:11 A pocket was created at the L Upper Chest. 19:18:31 Pocket flushed with antibiotic solution 19:19:28 A LEAD, SOLIA 60 53 PRO MRI * was inserted and positioned in the RA. 19:20:40 Lead placement verified under fluoroscopy 19:21:48 The Atrial lead impedance and threshold is being tested. 19:23:18 A device was explanted. 19:24:07 A PACEMAKER, ELUNA 8 DR-T DDDR was connected and placed in the pocket. 19:25:46 Stylet inserted in existing rv lead and given more slack. Second Sponge And Instrument Count Done by Tracie Denson RCIS. 19:32:08 Hypo's: 2, Sponges: 20, Bovie/scratch: 2 Sutures: 10, Blades: 1, Instruments: 26, Syveck Patches: 0 19:34:50 The pocket was closed. 19:35:31 Implant Procedure was performed. 19:35:35 A PPM Implant . (Dual) upgrade Final Sponge And Instrument Count Done by Tracie Denson RCIS. 19:35:44 Hypo's: 2, Sponges: 20, Bovie/scratch: 2 Sutures: 10, Blades: 1, Instruments: 26, Syveck Patches: 0 19:37:02 PACU called. Spoke to Guevara 19:37:06 Bedside Report will be given. 19:37:16 A sling will be placed on the affected arm. 19:38:15 Sterile dressing applied to site 19:38:34 Cine recording checked. Assessment: Final Case, HR=60 BPM, Rhythm=sr, NAQZ=872/56 mmhg, Chest Pain=0, Edema=None, Vidal r=Normal, Skin = Warm, Dry Right Pulses: Chris Ped=1 Left Pulses: Chris Ped=1 19:39:43 Lower Right Extremities: Color=Normal Lower Left Extremities: Color=Normal Neurological: State=Unresponsive, Comment=intubated et under anesthesia care Respiration: Resp=16 B/min, WmF7=315 %, Type=ET(Oral) 19:42:00 Left Arterial Sheath removed; pressure applied to access site by DB. 19:45:41 Right venous Sheath removed; pressure applied to access site by DC. 20:00:43 Implantable Device card placed in patient's chart. 20:00:46 Defibrillator and ground pads removed. Skin intact. 20:10:25 Sterile dressing applied to sites. Sites WNL. 20:10:33 Cine recording checked. 20:10:45 Case End 20:10:46 No case complications noted. 20:15:49 [facility] Study - Contrast Media Used In Study Contrast Total Opened (mL) Total Used (mL) Total Wasted (mL) Unspecified 0 0 0 End Study - Radiation Exposure Fluoro Time (minutes) 1.9 End Study - Patient Disposition Complications Transferred To Interventional Outcome No Telemetry Bed successful
[2017-06-21] MEDS ORDERED: DO NOT ADM ANY ANTICOAGULANT DRUGS PRN (20:18)
[2017-06-21] MEDS: LATANOPROST 0.005% OPHT SOLN 2.5 ML BTL EACH EYE SCH (21:00)
--- NOTE | 2017-06-21 21:35 | RADRPT ---
EXAM DATE/TIME: 06/21/2017 20:55 [place] COMPARISON: CHEST SINGLE AP, June 15, 2017, 13:38. INDICATIONS : Post op pacemaker. MEDICAL HISTORY : Cardiovascular disease. Congestive heart failure SURGICAL HISTORY : CABG. Pacemaker ENCOUNTER: Initial ACUITY: 1 day PAIN SCORE: 4/10 LOCATION: Bilateral chest FINDINGS: A single view of the chest demonstrates pacer leads overlying right atrium and right ventricle. Previ ous median sternotomy. Cardiomegaly. Minimal basilar atelectasis or scarring. No pneumothorax. Tortuo us aorta. CONCLUSION: 1. Pacer lead overlying right atrium and right ventricle. Tortuous aorta. Minimal dependent atelectas is or scarring. No new consolidation compared with June 15. Krystian Elizondo MD on June 21, 2017 at 21:32 Board Certified Radiologist. This report was verified electronically.
[2017-06-21] MEDS: ATORVASTATIN 40 MG TAB PO SCH (21:59)
--- NOTE | 2017-06-21 22:34 | HHI.PR ---
Subjective Remarks patient seen today around noon. Says he is feeling well. Denies any chest pain or shortness of breath. Objective Vital Signs Date Time Temp Pulse Resp B/P (MAP) Pulse Ox O2 Delivery O2 Flow Rate FiO2 06/21/17 21:30 60 12 124/59 (80) 100 Nasal Cannula 2 06/21/17 21:15 97.6 60 12 123/57 (79) 100 Nasal Cannula 2 06/21/17 21:00 60 12 124/60 (81) 100 Nasal Cannula 2 06/21/17 20:45 60 12 130/62 (84) 100 Nasal Cannula 2 06/21/17 20:30 60 12 129/63 (85) 100 Nasal Cannula 2 06/21/17 20:20 97.1 82 12 139/74 (95) 99 Nasal Cannula 2 06/21/17 16:45 75 06/21/17 15:14 75 06/21/17 15:14 97.7 85 16 122/79 (93) 97 06/21/17 14:17 81 06/21/17 13:21 80 06/21/17 12:10 75 06/21/17 11:15 75 06/21/17 11:15 97.8 87 16 145/66 (92) 98 06/21/17 10:00 74 06/21/17 09:44 92 06/21/17 09:42 97 21 06/21/17 08:30 82 06/21/17 08:30 98.0 74 16 131/63 (85) 96 06/21/17 06:00 76 06/21/17 05:00 77 06/21/17 04:00 81 06/21/17 03:20 97.4 77 16 122/60 (80) 98 06/21/17 03:00 85 06/21/17 02:00 77 06/21/17 01:00 73 06/21/17 00:00 75 06/20/17 23:10 97.9 73 16 111/50 (70) 98 06/20/17 23:00 76 I/O 06/20/17 06/20/17 06/20/17 06/21/17 06/21/17 06/21/17 07:00 15:00 23:00 07:00 15:00 23:00 Intake Total 240 ml 480 ml 240 ml 60 ml Output Total 700 ml 500 ml 1050 ml Balance 240 ml -220 ml -260 ml -990 ml Intake Oral 240 ml 480 ml 240 ml 60 ml Output Urine Total 700 ml 500 ml 1050 ml # Voids 2 # Bowel Movements 2 0 0 Result Diagram: 06/19/1761906/19/17619 Objective Remarks GENERAL: patient sitting up in bed. Appears comfortable. SKIN: Warm and dry. HEAD: Normocephalic. EYES: No scleral icterus. No injection or drainage. NECK: Supple, trachea midline. No JVD or lymphadenopathy. CARDIOVASCULAR: Regular rate and rhythm without murmurs, gallops, or rubs. RESPIRATORY: Breath sounds equal bilaterally. No accessory muscle use. GASTROINTESTINAL: Abdomen soft, non-tender, nondistended. MUSCULOSKELETAL: No cyanosis, or edema. BACK: Nontender without obvious deformity. No CVA tenderness. A/P Assessment and Plan 81yo male with PMHX of CAD with previous DE and CABG, DM, HTN, COPD, HLD, CKD stage 3, MARBIN, atrial fibrillation on Coumadin and hx of tachybrady syndrome s/p pacemaker placement February of this year who presents to [facility] ED with complaints of shortness of breath with minimal exertion and bilateral lower extremity swelling for the past 4 days. CHF, decompensated - CXR personally reviewed showing bilateral effusions, mild interstitial congestion - BNP 702, monitor - Diuresis with IV Lasix. Monitor electrolytes. - Strict I&Os - Echocardiogram EF 55, moderate MR - Fluid and sodium restricted diet -Continue lasix 40 mg IV bid , monitor kidney function closely. Add torsemide 20mg + KCL 20meq daily to prevent recurrent CHF. - continue supplemental oxygen to maintain O2 sats > 92% - PT eval/tx -Consult his cardiology doctor. ff. - With Afib with RVR overnight 06/17. increased cardizem to 360 mg po daily. Patient with persistent Afib failed medical management, consult EP Dr Wu for evaluation patient might benefit for biventricular device. = 06/21. Patient to undergo pacemaker placement. Appreciate cardiology assistance. CAD s/p previous DE and CABG Chest pain - c/o chest pain with dyspnea and exertion, suspect demand ischemia - patient is chest pain free after receiving IV Lasix in the ED - ED physician discussed with patients theatrical performer Dr. Ross who will see the patient in consultation - initial troponins negative x 2. Continue to trend Alda - ASA daily - IV Morphine prn chest pain - continuous cardiac monitoring Atrial fibrillation on Coumadin - rate controlled - INR therapeutic at 2.2 on admission - Continue home dose of Coumadin. Monitor INR. Pharmacy to dose. - continue Diltiazem . INR 2.4 therapeutic. = Cardiology following. Appreciate assistance. Hypertension -Continue on current medication regimen. CKD stage III - creatinine 1.45/GFR 47, on admission, previous creatinine 1.65/GFR 40 03/10 - avoid nephrotoxic agents - monitor kidney function while on IV Lasix = Creatinine continues near baseline. Continue to monitor. DM, type II - hold home Metformin and Glimepiride - accucheck - ISS - heart healthy diabetic diet MARBIN - resume home dose of oral iron supplementation - monitor CBC as indicated Dyslipidemia - resume home dose of Lipitor DVT prophylaxis - patient is on Coumadin Discharge Planning status post biventricular pacer 06/21. Home when cleared by cardiology. Axel Rocha MD Jun 21, 2017 22:34
[2017-06-22] VITALS (21 sets, daily range): BP systolic 100–132; BP diastolic 49–60; PULSE 60–82; RESP 16–19; TEMP 98–98.6; O2SAT 98–99
[2017-06-22 07:10] LABS: INTERNATIONAL NORMALIZED RATIO 2.6 RATIO; PROTHROMBIN TIME - PATIENT 25.9 SEC (9.8-11.6)
--- NOTE | 2017-06-22 07:50 | PD.CARD.PN ---
Subjective Subjective Remarks Feeling better this morning. Objective Medications Current Medications Medications (Trade) Dose Ordered Sig/Kulwant Route Start Time Stop Time Status Last Admin (NS Flush) 2 ml UNSCH PRN IV FLUSH 06/15/17 16:15 (NS Flush) 2 ml BID IV FLUSH 06/15/17 21:00 06/21/17 21:00 (Tylenol) 650 mg Q4H PRN PO 06/15/17 16:15 (Restoril) 15 mg HS PRN PO 06/15/17 16:15 06/18/17 22:00 (Narcan Inj) 0.4 mg UNSCH PRN IV PUSH 06/15/17 16:15 (Cyndie-Colace) 1 tab BID PO 06/15/17 21:00 06/20/17 08:23 (Milk Of Magnesia Liq) 30 ml Q12H PRN PO 06/15/17 16:15 06/19/17 09:48 (Senokot) 17.2 mg Q12H PRN PO 06/15/17 16:15 (Dulcolax Supp) 10 mg DAILY PRN RECTAL 06/15/17 16:15 (Lactulose Liq) 30 ml DAILY PRN PO 06/15/17 16:15 (Morphine Inj) 2 mg Q4H PRN IM 06/15/17 16:15 (D50w (Vial) Inj) 50 ml UNSCH PRN IV PUSH 06/15/17 18:15 (Glucagon Inj) 1 mg UNSCH PRN OTHER 06/15/17 18:15 (NovoLOG SUPPLEMENTAL SCALE) 1 ACHS SLIDING SCALE SQ 06/15/17 21:00 06/20/17 21:02 Pharmacy Profile Note 0 ml @ 0 mls/hr UNSCH OTHER 06/15/17 18:15 (Xalatan 0.005% Opth Soln) 1 drop HS EACH EYE 06/15/17 21:00 06/21/17 21:00 (Lipitor) 40 mg HS PO 06/15/17 21:00 06/21/17 21:59 (Prinivil) 5 mg Q12HR PO 06/16/17 10:15 06/21/17 21:59 (Cardizem Cd) 360 mg DAILY PO 06/18/17 09:00 06/21/17 08:54 (Demadex) 20 mg DAILY PO 06/19/17 11:00 06/21/17 08:54 (KCl) 20 meq DAILY PO 06/19/17 11:00 06/21/17 08:54 (Coumadin) 2 mg DAILY@1600 PO 06/20/17 16:00 06/20/17 16:54 Lactated Ringer's 1,000 ml @ 30 mls/hr Q24H PRN IV 06/21/17 02:30 06/24/17 02:29 Sodium Chloride 500 ml @ 30 mls/hr [id number] PRN IV 06/21/17 02:30 06/24/17 02:29 (Chlorhexidine 2% Cloth) 3 pack REGISTERED DENTAL HYGIENIST PRN TOPICAL 06/21/17 02:30 06/24/17 02:29 (NovoLIN R INJ) See Protocol Table ... REGISTERED DENTAL HYGIENIST PRN SQ 06/21/17 02:30 06/24/17 02:29 (Percocet 5-325 Mg) 1 tab Q4H PRN PO 06/21/17 19:45 (Percocet 5-325 Mg) 2 tab Q4H PRN PO 06/21/17 19:45 (Ativan Inj) 0.5 mg UNSCH PRN IV PUSH 06/21/17 19:45 06/22/17 19:44 (Atropine Inj) 0.5 mg UNSCH PRN IV PUSH 06/21/17 19:45 Sodium Chloride 250 ml @ 500 mls/hr ONCE PRN IV 06/21/17 19:45 06/22/17 19:44 (Reglan Inj) 10 mg Q4H PRN IV PUSH 06/21/17 19:45 (Zofran Inj) 4 mg Q4H PRN IV PUSH 06/21/17 19:45 (Xylocaine 1% Inj (50 ml)) 10 ml UNSCH PRN INFIL 06/21/17 19:45 06/22/17 19:44 Miscellaneous Information ALL NURSING DEPARTME... UNSCH PRN .XX 06/21/17 20:18 06/22/17 20:17 Vital Signs / I&O Vital Signs Date Time Temp Pulse Resp B/P (MAP) Pulse Ox O2 Delivery O2 Flow Rate FiO2 06/22/17 07:42 98.5 68 19 100/49 (66) 99 06/22/17 06:10 67 06/22/17 05:36 66 06/22/17 04:14 65 06/22/17 03:30 75 06/22/17 03:30 98.0 64 17 132/55 (80) 98 06/22/17 02:30 64 06/22/17 01:20 82 06/22/17 00:18 60 06/21/17 23:00 97.9 60 19 118/53 (74) 94 06/21/17 23:00 64 06/21/17 22:40 60 06/21/17 21:55 61 06/21/17 21:30 60 12 124/59 (80) 100 Nasal Cannula 2 06/21/17 21:15 97.6 60 12 123/57 (79) 100 Nasal Cannula 2 06/21/17 21:00 60 12 124/60 (81) 100 Nasal Cannula 2 06/21/17 20:45 60 12 130/62 (84) 100 Nasal Cannula 2 06/21/17 20:30 60 12 129/63 (85) 100 Nasal Cannula 2 06/21/17 20:20 97.1 82 12 139/74 (95) 99 Nasal Cannula 2 06/21/17 16:45 75 06/21/17 15:14 75 06/21/17 15:14 97.7 85 16 122/79 (93) 97 06/21/17 14:17 81 06/21/17 13:21 80 06/21/17 12:10 75 06/21/17 11:15 75 06/21/17 11:15 97.8 87 16 145/66 (92) 98 06/21/17 10:00 74 06/21/17 09:44 92 06/21/17 09:42 97 21 06/21/17 08:30 82 06/21/17 08:30 98.0 74 16 131/63 (85) 96 I/O 06/21/17 06/21/17 06/21/17 06/22/17 06/22/17 06/22/17 07:00 15:00 23:00 07:00 15:00 23:00 Intake Total 240 ml 60 ml 720 ml Output Total 500 ml 1050 ml 150 ml Balance -260 ml -990 ml 570 ml Intake Oral 240 ml 60 ml 720 ml Output Urine Total 500 ml 1050 ml 50 ml Other 100 ml Bladder Scan Volume Amount 155 ml # Bowel Movements 0 0 Physical Exam GENERAL: Well-nourished, well-developed patient. SKIN: Warm and dry. Left chest wall incision well approximated without erythema or drainage. Groin site soft without bruising or bleeding. HEAD: Normocephalic. EYES: No scleral icterus. No injection or drainage. NECK: Supple, trachea midline. No JVD or lymphadenopathy. CARDIOVASCULAR: Regular rate and rhythm without murmurs, gallops, or rubs. RESPIRATORY: Breath sounds equal bilaterally. No accessory muscle use. GASTROINTESTINAL: Abdomen soft, non-tender, nondistended. EXTREMITIES: No cyanosis, or edema. NEUROLOGICAL: Awake, alert, and oriented x 3. Non-focal. Laboratory Laboratory Tests Test 06/22/17 06:13 Prothrombin Time 25.9 SEC Prothromb Time International Ratio 2.6 RATIO Activated Partial Thromboplast Time 31.8 SEC Imaging Last Impressions Chest X-Ray 06/21/17 0000 Signed Impressions: Service Date/Time: Wednesday, June 21, 2017 20:55 - CONCLUSION: 1. Pacer lead overlying right atrium and right ventricle. Tortuous aorta. Minimal dependent atelectasis or scarring. No new consolidation compared with June 15. Krystian Elizondo MD Assessment and Plan Problem List: (1) Atrial flutter ICD Codes: I48.92 - Unspecified atrial flutter Plan: Pacing appropriately status post ablation of atrial flutter. (2) S/P ablation of atrial flutter ICD Codes: Z98.890 - Other specified postprocedural states; Z86.79 - Personal history of other diseases of the circulatory system Plan: Resume warfarin. Monitor INR. (3) S/P cardiac pacemaker procedure ICD Codes: Z95.0 - Presence of cardiac pacemaker Plan: Status post addition of atrial pacemaker lead. Pacing appropriately. Incision clean, benign. Chest x-ray shows no pneumothorax. Stable for discharge home when cleared by managing team. Keflex 500 mg 3 times a day 3 days. Follow-up with Dr. wu in 2 weeks. Assessment and plan per my discussion with Dr. Wu. Daya Perdomo Jun 22, 2017 07:50
[2017-06-22] MEDS: INSULIN ASPART SUPPLEMENTAL SCALE SQ SCH ×2 (08:36→12:00)
[2017-06-22] MEDS: SODIUM CHLORIDE 0.9% FLUSH 10 ML FLUSH IV FLUSH SCH (08:36)
[2017-06-22] MEDS: DILTIAZEM-CD 180 MG CAP ER PO SCH (08:36)
[2017-06-22] MEDS: LISINOPRIL 5 MG TAB PO SCH (08:37)
[2017-06-22] MEDS: DOCUSATE SODIUM 50 MG/SENNA 8.6 MG TAB PO SCH (08:37)
[2017-06-22] MEDS: TORSEMIDE 20 MG TAB PO SCH (08:37)
[2017-06-22] MEDS: POTASSIUM CHLORIDE 20 MEQ CONTROLLED RELEASE TAB PO SCH (08:37)
[2017-06-22] MEDS ORDERED: CEPH500C PO (09:58)
--- NOTE | 2017-06-22 09:59 | HHI.DS ---
Discharge Summary Admission Date Jun 15, 2017 at 16:08 Discharge Date: Jun 22, 2017 Admitting Diagnosis chest pain, chf (1) Status post placement of cardiac pacemaker ICD Code: Z95.0 - Presence of cardiac pacemaker Status: Acute (2) Chronic atrial fibrillation ICD Code: I48.2 - Chronic atrial fibrillation Status: Chronic (3) Mitral regurgitation ICD Code: I34.0 - Nonrheumatic mitral (valve) insufficiency (4) CHF (congestive heart failure) ICD Code: I50.9 - Heart failure, unspecified Status: Acute (5) CAD (coronary artery disease) ICD Code: I25.10 - Atherosclerotic heart disease of lime coronary artery without angina pectoris Status: Chronic (6) Chest pain ICD Code: R07.9 - Chest pain, unspecified Status: Acute Procedures AICD placement Brief History - From Admission History of present illness from the admitting physician 81yo male with PMHX of CAD with previous CT and CABG, DM, HTN, COPD, HLD, CKD stage 3, MARBIN, atrial fibrillation on Coumadin and hx of tachybrady syndrome s/p pacemaker placement February of this year who presents to [facility] ED with complaints of shortness of breath with minimal exertion and bilateral lower extremity swelling for the past 4 days. He reports associated chest pain with the shortness of breath. He describes the chest pain as a nonradicular pushing sensation. He denies any associated palpitations, nausea, vomiting, abdominal pain or diarrhea. He does endorse lightheadedness with exertion. He states the chest pain is improved with lying flat. He reports increased fatigue. He denies any cough. Patient reports his blood sugars have "leonardo rocketed" over the past 4-5 days. In the ED, CXR shows mild interstitial edema and bilateral small pleural effusions and BNP elevated at 702. He reports improvement after receiving IV Lasix in the ED. He is chest pain free at this time. CBC/BMP: 06/19/17 0620 06/19/17 0620 Significant Findings Laboratory Tests Test 06/20/17 05:31 06/21/17 05:06 06/22/17 06:13 Prothrombin Time 25.7 SEC (9.8-11.6) 24.6 SEC (9.8-11.6) 25.9 SEC (9.8-11.6) Activated Partial Thromboplast Time 31.8 SEC (24.3-30.1) Imaging Last Impressions Chest X-Ray 06/21/17 0000 Signed Impressions: Service Date/Time: Wednesday, June 21, 2017 20:55 - CONCLUSION: 1. Pacer lead overlying right atrium and right ventricle. Tortuous aorta. Minimal dependent atelectasis or scarring. No new consolidation compared with June 15. Krystian Elizondo MD PE at Discharge GENERAL: This is a well-nourished, well-developed patient, in no apparent distress. CARDIOVASCULAR: Normal rate and regular rhythm without murmurs, gallops, or rubs. RESPIRATORY: Good respiratory efforts. Breath sounds equal and clear to auscultation bilaterally. GASTROINTESTINAL: Abdomen soft, non-tender, non-distended. Normal active bowel sounds MUSCULOSKELETAL: Extremities without cyanosis, or edema. NEURO: Alert & Oriented x4 to person, place, time, situation. Moves all ext x4 PSYCH: Appropriate mood and affect. Pt update on day of discharge Patient reports he is feeling well. He reports a foreign body sensation on his right eye. Discussed with RN. He was found to have an eyelash in the eye which was removed last night. He reports the foreign body sensation is improving. He also reports a history of cataract and has not been using his regular drops. Hospital Course 81yo male with PMHX of CAD with previous CT and CABG, DM, HTN, COPD, HLD, CKD stage 3, MARBIN, atrial fibrillation on Coumadin and hx of tachybrady syndrome s/p pacemaker placement February of this year who presents to [facility] ED with complaints of shortness of breath with minimal exertion and bilateral lower extremity swelling for 4 days. The patient was admitted and followed by cardiology. He was treated with IV Lasix. Patient had persistent A. fib and failed medical management. He underwent pacemaker placement. Patient did well postoperatively. The patient is to continue on rate control medication and Coumadin. He will continue on his chronic home medications for his chronic conditions. Patient complained of foreign body sensation on the day of discharge involving the right eye. He notes that it was improving and getting better. No abnormalities noted on external eye exam. Patient is advised to follow-up outpatient with ophthalmology, especially with his history of cataract. He was given some teardrops to help prevent dry eyes. Pt Condition on Discharge: Stable Discharge Disposition: Discharge Home Discharge Time: > 30 minutes Discharge Instructions DIET: Follow Instructions for: Heart Healthy Diet, Coumadin (Warfarin) Diet Activities you can perform: Regular-No Restrictions Follow up Referrals: Cardiology - 06/21/17 with Nely Wu MD Ophthalmology - 1 Week with Francie Rodríguez MD Call for appointment PCP Follow-up - 2-3 Days New Medications: Cephalexin (Cephalexin) 500 Mg Cap 500 MG PO Q8HR, #6 CAP Lisinopril (Lisinopril) 5 Mg Tab 5 MG PO Q12HR for Blood Pressure Management, #60 TAB Metoprolol Tartrate (Lopressor) 50 Mg Tab 50 MG PO Q8HR for Blood Pressure Management, #90 TAB Potassium Chloride Microencaps (Potassium Chloride Microencaps) 20 Meq Tab 20 MEQ PO DAILY for Nutritional Supplement, #30 TAB Torsemide (Demadex) 20 Mg Tab 20 MG PO DAILY for Blood Pressure Management, #30 TAB Continued Medications: Aspirin (Aspirin Low Dose) 81 Mg Chew 81 MG CHEW DAILY, TAB 0 Refills Atorvastatin (Lipitor) 80 Mg Tab 80 MG PO HS for Cholesterol Management, #30 TAB 0 Refills Brimonidine Opth Drops (Brimonidine Opth Drops) 0.2% Soln 1 DROP EACH EYE BID for Intraocular pressure, #1 BOTTLE 0 Refills Cholecalciferol (Vitamin D) 2,000 Unit Cap 2 TAB PO DAILY Cinnamon (Eql Cinnamon) 500 Mg Cap 500 MG PO TID, #1 BOTTLE Diltiazem ER 24 HR (Cartia Xt) 120 Mg Caper 360 MG PO DAILY, #30 CAP 0 Refills Ferrous Sulfate (Ferrous Sulfate) 325 Mg (65 Mg Iron) Tablet 325 MG PO BID for Nutritional Supplement, #30 TAB 0 Refills Furosemide (Furosemide) 40 Mg Tab 40 MG PO DAILY, #30 TAB 0 Refills Glimepiride (Glimepiride) 2 Mg Tab 4 MG PO DAILY for Blood Sugar Management, #30 TAB 0 Refills Take with breakfast or first main meal Glimepiride (Glimepiride) 2 Mg Tab 2 MG PO HS for Blood Sugar Management, #30 TAB 0 Refills Take with breakfast or first main meal Latanoprost Opth Drops (Latanoprost Opth Drops) 0.005% Drops 1 DROP EACH EYE HS for Glaucoma, #2.5 ML 0 Refills Refrigerate until opened. Metformin (Metformin) 500 Mg Tab 750 MG PO BIDPC for Blood Sugar Management, #60 TAB 0 Refills With meals [place]-3 Fatty Acids (Fish Oil) 300 Mg Capsule 1 TAB PO TID Warfarin (Warfarin) 1 Mg Tab 3 MG PO DAILY for Blood Clot Prevention, #30 TAB 0 Refills Discontinued Medications: Hydralazine HCl (Hydralazine HCl) 25 Mg Tablet 50 MG PO DAILY for Blood Pressure Management, #60 TAB 0 Refills Metoprolol Succinate ER 24 HR (Metoprolol Succinate ER 24 HR) 100 Mg Tab 100 MG PO DAILY, #30 TAB 0 Refills Eddie Barrera MD Jun 22, 2017 09:59
[2017-06-22] MEDS ORDERED: CARBOXYMETHYLCELL SOD 0.5% OPTH SOLN 15 ML BTL EACH EYE PRN (10:00)
[2017-06-22] MEDS ORDERED: CEPHALEXIN MONOHYDRATE 500 MG CAP PO SCH (14:00)
--- NOTE | 2017-06-22 15:02 | EKG ---
Date Performed: 06/22/2017 Time Performed: 06:38:08 PTAGE: 81 years EKG: sinus rythm Prolonged QT interval Inferior infarct - age undetermined Anterolateral ST-T ch anges may be due to myocardial ischemia Abnormal ECG NO PREVIOUS TRACING DOCTOR: Puneet Braxton Interpretating Date/Time 06/22/2017 15:01:42
--- NOTE | 2017-06-22 15:36 | EKG ---
Date Performed: 06/21/2017 Time Performed: 20:39:34 PTAGE: 81 years EKG: ELECTRONIC ATRIAL PACEMAKER MODERATE INTRAVENTRICULAR CONDUCTION DELAY ST DEVIATION AND MAR KED T-WAVE ABNORMALITY, CONSIDER LATERAL ISCHEMIA ST DEVIATION AND MARKED T-WAVE ABNORMALITY, CONSIDE R INFERIOR ISCHEMIA ABNORMAL ECG PREVIOUS TRACING : 06/17/2017 07.23 DOCTOR: Puneet Braxton Interpretating Date/Time 06/22/2017 15:34:34
[2017-06-22] MEDS ORDERED: WARFARIN SOD 1 MG TAB PO SCH (16:00)
== END 2017-06-22 17:55 | disposition home or self-care (01) ==
LOC: NEPC 12:35 → NEDA 16:08 → HCPC 21:05
PROVIDERS: ADMIT Family Medicine; ATTEND Family Medicine
DX: Z45.010 Encounter for checking and testing of cardiac pacemaker pulse generator [battery] (principal); I49.5 Sick sinus syndrome; I48.1 Persistent atrial fibrillation; I13.0 Hypertensive heart and chronic kidney disease with heart failure and stage 1 through stage 4 chronic kidney disease, or unspecified chronic kidney disease; I50.9 Heart failure, unspecified; E11.22 Type 2 diabetes mellitus with diabetic chronic kidney disease; N18.3 Chronic kidney disease, stage 3 (moderate); I25.2 Old myocardial infarction; I25.119 Atherosclerotic heart disease of native coronary artery with unspecified angina pectoris; D50.9 Iron deficiency anemia, unspecified; R06.02 Shortness of breath; J44.9 Chronic obstructive pulmonary disease, unspecified; E78.5 Hyperlipidemia, unspecified; Z79.01 Long term (current) use of anticoagulants; Z79.84 Long term (current) use of oral hypoglycemic drugs
CPT/HCPCS: 00530; 33214; 71010; 71020; 76937; 80048; 80053; 82550; 82948; 83690; 83735; 83880; 84484; 85002; 85025; 85610; 85730; 93005; 93306; 93312; 93320; 93325; 93613; 93623; 93653; 93662; 96365; 96366; 96372; 96375; 96376; 97163; 99285; C1730; C1732; C1766; C1785; C1898; C2630; G0378; G8987; G8988; J0690; J1644; J1815; J1940; J1956; J2370; J2405; J2710; J2720; J3010; J3370; J3475; J7050; J0171; J0461